=== PATIENT | female | born 1940 | race African-American/Black ===

== ENCOUNTER 2016-09-26 11:41 | Inpatient (IN) ==
[2016-09-26 13:18] LABS: BASO% 0.1 % (0.0-0.8); EOS# 0.01 X1000 (0.0-0.7); HEMATOCRIT 29.6 % (37.0-47.0); HEMOGLOBIN 10.2 g/dL (12.0-16.0); IMM GRAN# 0.46 X1000 (0.0-0.04); IMM GRAN% 1.8 % (0.0-0.5); MANUAL DIFF NEEDED? NO; MCH 25.6 PG (27-31); MCHC 34.5 g/dL (33-37); MCV 74.2 FL (81-99); MONO# 1.51 X1000 (0.11-0.59); MPV 10.4 FL (7.4-10.4); NEUT% 90.1 % (42.2-75.2); PLT 345 X1000 (130-400); RBC 3.99 XMIL (4.2-5.4)
[2016-09-26 13:23] LABS: ACETONE SERUM NEGATIVE (NEGATIVE)
[2016-09-26] MEDS ORDERED: NS 1,000 ML IV ONE (13:35)
[2016-09-26] MEDS ORDERED: HUMULIN R IV ONE (13:35)
[2016-09-26 13:49] LABS: AGAP 18; ALBUMIN 3.1 g/dL (3.5-5.0); ALKALINE PHOSPHATASE 68 U/L (32-104); BUN 65 mg/dL (8-22); CALCIUM 9.2 mg/dL (8.8-10.2); CHLORIDE 87 mmol/L (98-107); COSMO 295; GOT 18 U/L (10-30); GPT 13 U/L (10-36); POTASSIUM 3.7 mmol/L (3.5-5.1); SODIUM 128 mmol/L (136-145); TCO2 23 mmol/L (25-35); TOTAL BILIRUBIN 0.27 mg/dL (0.20-1.00); TOTAL PROTEIN 7.9 g/dL (6.3-8.3)
[2016-09-26 13:56] LABS: ALLEN TEST YES; BE 1.8 mmoll (-3.0-3.0); BLOOD TYPE ARTERIAL; DRAW SITE R RADIAL; METHB 2.3 % (0.0-1.5); O2(CT) 13.4 mL/dL (15.0-23.0); PCO2(98.6) 36 mmHg (35-45); PO2(98.6) 53 mmHg (60-100); SAMPLE BLOOD; SAO2 93.9 % (95.0-100.0); THB 10.6 g/dL (11.5-17.4); pH(98.6) 7.46 (7.35-7.45)
[2016-09-26 13:58] LABS: MODALITY ROOM AIR
--- NOTE | 2016-09-26 14:43 | Diag Imaging Result Document ---
PROCEDURE NAME: CHEST-2 VIEWS - 09/26/2016 CHEST X-RAY 2 VIEWS: COMPARISON: 09/25/2016. FINDINGS: There is worsening consolidation of the right upper lobe compatible with pneumonia. There is significant cardiomegaly. No pneumothorax or large effusion. IMPRESSION: 1. Worsening right upper lobe pneumonia. 2. Severe cardiomegaly.
[2016-09-26] MEDS ORDERED: ZITHROMAX 500 MG/NS 500 MG/250 ML IVPB IV ONE (15:00)
[2016-09-26] MEDS ORDERED: ROCEPHIN 1 GM/NS 1 GM/50 ML IVPB IV ONE (15:01)
--- NOTE | 2016-09-26 15:02 | PROVIDER DOCUMENTATION ---
This chart was entered by Faraz Capellan Scribe, acting as scribe for Kirill Mcgrath Jr, MD. HPI-General Adult - General Chief Complaint: High Blood Sugar Stated Complaint: HIGH BLOOD SUGAR Time Seen by Provider: 09/26/16 12:58 Source: patient, family Allergies/Adverse Reactions: Patient Allergies Allergy/AdvReac Type Severity Reaction Status Date / Time meperidine HCl * AdvReac hallucinati Verified 09/26/16 12:12 [From Demerol] ons Home Medications: Home Medication List Medication Instructions Recorded Confirmed Last Taken Type Amlodipine Besylate 5 mg PO DAILY 01/20/14 01/20/14 01/20/14 10:00 History Aspirin 81 mg PO DAILY 01/20/14 01/20/14 01/10/14 History Clopidogrel [Plavix] 75 mg PO DAILY 01/20/14 01/20/14 01/10/14 History Esomeprazole [Nexium] 40 mg PO DAILY 01/20/14 01/20/14 01/20/14 10:00 History Glimepiride 4 mg PO DAILY 01/20/14 01/20/14 01/20/14 10:00 History Insulin Glargine [Lantus] 0 unit SUBQ QAM 01/20/14 01/20/14 01/20/14 13:30 History Meclizine HCl [Antivert] 25 mg PO TID PRN #30 tablet 01/20/14 Unknown Rx Metoclopramide [Reglan] 10 mg PO Q6HR #40 tablet 01/20/14 Unknown Rx Pioglitazone HCl [Pioglitazone] 15 mg PO DAILY 01/20/14 01/20/14 01/20/14 10:00 History Pravastatin Sodium 80 mg PO DAILY 01/20/14 01/20/14 01/20/14 10:00 History Benzonatate [Tessalon Perle] 100 mg PO TID PRN #20 capsule 09/25/16 Unknown Rx Budesonide/Formoterol Fumarate 2 puff IH BID #1 inhaler 09/25/16 Unknown Rx [Symbicort 160-4.5 Mcg Inhaler] Levofloxacin [Levaquin] 750 mg PO DAILY #7 tablet 09/25/16 Unknown Rx - History of Present Illness -Gen Adult Nature of Presenting Problems: Patient is a 76 y/o F that presents to the ER with two complaints 1) high blood sugar, patient's blood sugar has been above 500mg/dl all weekend. She went to her PCP today and it was greater than 500, sent her here for evaluation 2) patient initially had cough and cold symptoms last week, given cough meds with codiene and she has been lethargic since. Seen two nights ago in the ER dx with pneumonia and given levaquin but hasn't got the rx filled, she still has cough and congestion. Location of Pain/Injury: reports: none Pain Radiation: reports: no radiation Quality of Pain: reports: none Severity: reports: moderate Onset/Duration: reports: gradual, 4 days ago Timing: reports: still present, getting worse Context/Activities at Onset: reports: none Modifying Factors: improves with: nothing Associated Symptoms: reports: cough, fatigue, malaise, shortness of breath, weakness. denies: chest pain, fever/chills, genitourinary problems, nausea Similar Symptoms Previously?: Yes Recently seen or treated by another doctor?: Yes - Diabetes Related Context Context: reports: high blood sugar, change in mental status Review of Systems - Adult - REVIEW OF SYSTEMS - ADULT Constitutional: denies: chills, fever Eyes: denies: double vision Ears, Nose, Mouth & Throat: denies: ear pain, sinus problem, throat pain, throat swelling Cardiovascular: denies: chest pain, palpitations Respiratory: reports: cough, shortness of breath. denies: wheezing Gastrointestinal: denies: abdominal pain, diarrhea, nausea, vomiting Genitourinary: reports: no symptoms reported Musculoskeletal: reports: no symptoms reported Integumentary: reports: no symptoms reported Neurological: reports: other (lethargy). denies: dizziness/vertigo, headache/ migraines Psychiatric: reports: no symptoms reported Endocrine: reports: no symptoms reported Hematologic/Lymphatic: reports: no symptoms reported Allergic/Immunologic: reports: no symptoms reported All Other Systems: Reviewed and Negative Past History - Adult - PAST MEDICAL HISTORY-ADULT Review of Records: reports: Old Records Reviewed, Nursing Assessment Review, Medications Reviewed Cardiovascular: reports: HTN, hyperlipidemia Gastrointestinal: reports: GERD Neurological: reports: CVA, stroke deficits (right sided) Endocrine/Immune: reports: Diabetes - PRIOR SURGERIES/PROCEDURES Surgical/Procedure History: reports: hysterectomy - PRIOR HOSPITALIZATIONS Prior Hospitalizations: reports: none - IMMUNIZATION STATUS Childhood Immunizations: See Nurse Assessment Flu Vaccine: See Nurse Assessment - FAMILY HISTORY Family History: reviewed, not pertinent - SOCIAL HISTORY Smoking: non-smoker Living Situation: family Physical Exam-General - PHYSICAL EXAM-ADULT Initial Vital Signs Reviewed: Yes - CONSTITUTIONAL General Appearance: no apparent distress, lethargic - EYES Eyes: PERRL/EOMI, pink conjunctivae - HEAD, EARS, NOSE, MOUTH & THROAT HENMT: normocephalic/atraumatic, moist mucous membranes, normal ENT inspection - NECK Neck: full range of motion, normal inspection - RESPIRATORY Respiratory: no respiratory distress, no accessory muscle use, decreased breath sounds - CARDIOVASCULAR Cardiovascular: regular rate, rhythm, no edema, no murmur - GASTROINTESTINAL (ABDOMEN) Abdominal Exam: normal bowel sounds, non tender, soft, no organomegaly - MUSCULOSKELETAL Extremity: normal range of motion, normal inspection, no pedal edema - SKIN Integumentary: normal color, warm/dry - NEUROLOGIC Neurologic: green inspector II-XII nml as tested, no motor/sensory deficits - PSYCHIATRIC Psych/Mental Status: normal mood/affect, oriented x 3 Progress - PLAN OF CARE/RESULTS Progress/Plan/Lab Results: Vital Signs - 8 hr 09/26/16 11:55 09/26/16 12:57 Temperature 99.0 F Pulse Rate 95 H 96 H Respiratory Rate 18 Blood Pressure 158/136 191/78 O2 Sat by Pulse Oximetry 97 92 L Laboratory Results - last 24 hr 09/26/16 09/26/16 09/26/16 12:50 12:50 13:45 WBC 25.09 H RBC 3.99 L Hgb 10.2 L Hct 29.6 L MCV 74.2 L MCH 25.6 L MCHC 34.5 RDW Std Deviation 14.9 H Plt Count 345 MPV 10.4 Immature Gran % (Auto) 1.8 H Neut % (Auto) 90.1 H Lymph % (Auto) 2.0 L Will % (Auto) 6.0 Eos % (Auto) 0.0 Baso % (Auto) 0.1 Immature Gran # (Auto) 0.46 H Neut # (Auto) 22.59 H Lymph # (Auto) 0.50 L Will # (Auto) 1.51 H Eos # (Auto) 0.01 Baso # (Auto) 0.02 Specimen Type ARTERIAL Sample Site R RADIAL pH 7.46 H pCO2 36 pO2 53 L HCO3 26.2 H Base Excess 1.8 Oxyhemoglobin 89.7 L* ABG O2 Sat (Calculated) 13.4 L ABG O2 Saturation 93.9 L ABG Carboxyhemoglobin 2.10 ABG Methemoglobin 2.3 H Oscar Test YES A-a O2 Difference 52.0 Total Hemoglobin 10.6 L Lactate 1.70 Blood Gas Modality ROOM AIR FiO2 % 21.0 Sodium 128 L Potassium 3.7 Chloride 87 L Carbon Dioxide 23 L Anion Gap 18 BUN 65 H Creatinine 3.0 H Estimated GFR/1.73 m2 18 BUN/Creatinine Ratio 22 Glucose 443 H* Calculated Osmolality 295 Calcium 9.2 Total Bilirubin 0.27 AST 18 ALT 13 Alkaline Phosphatase 68 Total Protein 7.9 Albumin 3.1 L Globulin 4.8 Albumin/Globulin Ratio 0.6 Acetone Level NEGATIVE Orders Category Date Time Status CHEST-2 VIEWS [RAD] Stat Exams 09/26/16 13:34 Ordered ABG [RESP] Routine Lab 09/26/16 13:45 Completed CBC WITH ELECTRONIC DIFF [HEME] Stat Lab 09/26/16 12:50 Completed COMPREHENSIVE METABOLIC PANEL [CHEM] Stat Lab 09/26/16 12:50 Completed Ketone [ACETONE SERUM] [CHEM] Stat Lab 09/26/16 12:50 Completed URINALYSIS W/POSS RFLX CULT-1 [URINALYSIS] Stat Lab 09/26/16 13:03 Uncollected 0.9% Sodium Chloride Inj [Ns] 1,000 ml Med 09/26/16 13:35 Active IV 999 mls/hr Insulin Human Regular [Humulin R] Med 09/26/16 13:35 Discontinued 15 unit IV NOW ONE Orders Category Date Time Status CHEST-2 VIEWS [RAD] Stat Exams 09/26/16 13:34 Draft ABG [RESP] Routine Lab 09/26/16 13:45 Completed CBC WITH ELECTRONIC DIFF [HEME] Stat Lab 09/26/16 12:50 Completed COMPREHENSIVE METABOLIC PANEL [CHEM] Stat Lab 09/26/16 12:50 Completed Ketone [ACETONE SERUM] [CHEM] Stat Lab 09/26/16 12:50 Completed URINALYSIS W/POSS RFLX CULT-1 [URINALYSIS] Stat Lab 09/26/16 13:03 Uncollected 0.9% Sodium Chloride Inj [Ns] 1,000 ml Med 09/26/16 13:35 Discontinued IV 999 mls/hr Insulin Human Regular [Humulin R] Med 09/26/16 13:35 Discontinued 15 unit IV NOW ONE Vital Signs Temp Pulse Resp BP Pulse Ox 09/26/16 12:57 96 H 191/78 92 L 09/26/16 11:55 99.0 F 95 H 18 158/136 97 meperidine HCl * [From Demerol] Adverse Reaction (Verified 09/26/16 12:12) hallucinations Amlodipine Besylate 5 mg PO DAILY 01/20/14 Aspirin 81 mg PO DAILY 01/20/14 Clopidogrel [Plavix] 75 mg PO DAILY 01/20/14 Esomeprazole [Nexium] 40 mg PO DAILY 01/20/14 Glimepiride 4 mg PO DAILY 01/20/14 Insulin Glargine [Lantus] 0 unit SUBQ QAM 01/20/14 Meclizine HCl [Antivert] 25 mg PO TID PRN #30 tablet 01/20/14 Metoclopramide [Reglan] 10 mg PO Q6HR #40 tablet 01/20/14 Pioglitazone HCl [Pioglitazone] 15 mg PO DAILY 01/20/14 Pravastatin Sodium 80 mg PO DAILY 01/20/14 Benzonatate [Tessalon Perle] 100 mg PO TID PRN #20 capsule 09/25/16 Budesonide/Formoterol Fumarate [Symbicort 160-4.5 Mcg Inhaler] 2 puff IH BID #1 inhaler 09/25/16 Levofloxacin [Levaquin] 750 mg PO DAILY #7 tablet 09/25/16 Laboratory 09/26/16 09/26/16 09/26/16 13:45 12:50 12:50 WBC 25.09 H RBC 3.99 L Hgb 10.2 L Hct 29.6 L MCV 74.2 L MCH 25.6 L MCHC 34.5 RDW Std Deviation 14.9 H Plt Count 345 MPV 10.4 Immature Gran % (Auto) 1.8 H Neut % (Auto) 90.1 H Lymph % (Auto) 2.0 L Will % (Auto) 6.0 Eos % (Auto) 0.0 Baso % (Auto) 0.1 Immature Gran # (Auto) 0.46 H Neut # (Auto) 22.59 H Lymph # (Auto) 0.50 L Will # (Auto) 1.51 H Eos # (Auto) 0.01 Baso # (Auto) 0.02 Specimen Type ARTERIAL Sample Site R RADIAL pH 7.46 H pCO2 36 pO2 53 L HCO3 26.2 H Base Excess 1.8 Oxyhemoglobin 89.7 L* ABG O2 Sat (Calculated) 13.4 L ABG O2 Saturation 93.9 L ABG Carboxyhemoglobin 2.10 ABG Methemoglobin 2.3 H Oscar Test YES A-a O2 Difference 52.0 Total Hemoglobin 10.6 L Lactate 1.70 Blood Gas Modality ROOM AIR FiO2 % 21.0 Sodium 128 L Potassium 3.7 Chloride 87 L Carbon Dioxide 23 L Anion Gap 18 BUN 65 H Creatinine 3.0 H Estimated GFR/1.73 m2 18 BUN/Creatinine Ratio 22 Glucose 443 H* Calculated Osmolality 295 Calcium 9.2 Total Bilirubin 0.27 AST 18 ALT 13 Alkaline Phosphatase 68 Total Protein 7.9 Albumin 3.1 L Globulin 4.8 Albumin/Globulin Ratio 0.6 Acetone Level NEGATIVE Result Diagrams: 09/26/16 12:50 09/26/16 12:50 - XRAY 1 XRAY Study: Chest Impression: Abnormal XRAY Interpretation: worsening pneumonia, CMG - CONSULTS/PCP/HOSPITALIST Notification #1 *Consult/PCP/Hospitalist*: Time Discussed: 14:58 Reason/Comments: pneumonia, hyperglycemia Consult Disposition: Admit Departure - Departure Time of Disposition Decision: 14:59 DIAGNOSIS: Hyperglycemia, Hyponatremia, Dehydration Right upper lobe pneumonia Qualifiers: Pneumonia type: due to unspecified organism Qualified Code(s): J18.1 - Lobar pneumonia, unspecified organism Chronic kidney disease (CKD) Qualifiers: Chronic kidney disease stage: unspecified stage Qualified Code(s): N18.9 - Chronic kidney disease, unspecified Disposition: ADMITTED INPATIENT 09 Certified Medical Emergency: Emergent Condition: Stable Referrals and Follow-Ups: Wayne Delatorre MD [Primary Care Provider] - - Critical Care Note This patient required my direct & personal management of CC.: No This chart was documented by the indicated scribe, (Faraz Caplelan, Scribe) and accurately reflects the services I performed and decisions made by me, Kirill Mcgrath Jr, MD, as attested by the provider's signature.
[2016-09-26 15:44] LABS: URINE CULTURE NEEDED? NO; URINE SOURCE CATH
[2016-09-26 15:48] LABS: URINE MICRO REVIEW NEEDED? YES
[2016-09-26 15:49] LABS: BILIRUBIN URINE NEGATIVE (NEGATIVE); BLOOD URINE SMALL (NEGATIVE); COLOR YELLOW; GLUCOSE URINE >1000 mg/dL (NEGATIVE); LEUKOCYTES URINE NEGATIVE (NEGATIVE); NITRITE URINE NEGATIVE (NEGATIVE); PROTEIN URINE 50 mg/dL (NEGATIVE); SP GRAVITY URINE 1.011; TURBIDITY URINE CLEAR (CLEAR); UROBILINOGEN URINE NORMAL (NORMAL)
[2016-09-26 15:52] LABS: UR EPITHELIAL CELLS <10 /HPF (<10); URINE BACTERIA NEGATIVE /HPF; URINE RBC <10 /HPF (<10); URINE WBC <10 /HPF (<10)
[2016-09-26 15:57] LABS: HEMOGLOBIN A1C 9.4 % (4.8-6.0)
[2016-09-26 16:07] LABS: URINE CASTS GRANULAR PRESENT
[2016-09-26 16:32] LABS: UR CREAT RANDOM 64.2 mg/dL (11-20)
[2016-09-26] MEDS ORDERED: APRESOLINE IV PRN (17:24)
--- NOTE | 2016-09-26 19:48 | Diag Imaging Result Document ---
PROCEDURE NAME: HEAD W/O CONTRAST - 09/26/2016 CT OF THE HEAD WITHOUT CONTRAST: FINDINGS: There is encephalomalacia in both cerebellar hemispheres. This was also present on 02/13/2014. The MRI of that date also demonstrates a lacunar lesion in the right brachium pontis. There is no evidence of bleed or abnormal extra-axial fluid collection. The visualized paranasal sinuses are clear. The calvarium appears to be intact. IMPRESSION: Chronic ischemic changes. No evidence of acute disease.
[2016-09-26] MEDS ORDERED: NS 1,000 ML IV SCH (20:01)
[2016-09-26] MEDS: XOPENEX NEB INH SCH ×2 (20:30→22:30)
[2016-09-26] MEDS: ATROVENT NEB INH SCH ×2 (20:30→22:30)
--- NOTE | 2016-09-26 20:59 | HISTORY AND PHYSICAL ---
PRIMARY CARE PROVIDER: Dr. Wayne Delatorre. CHIEF COMPLAINT: Elevated blood sugar, cough, weakness, chills. HISTORY OF PRESENT ILLNESS: Ms Nidia Witt is a 76-year-old female with a history of CVA and right-sided weakness, diabetes mellitus type 2, CKD, hypertension, reflux, high cholesterol, anemia who apparently over the last 2 weeks has had a cough that is nonproductive. She went to her primary care provider about 3 days ago and was sent home with antibiotics which the daughter who lives with her is unsure she took. She presented to the ER late Monday night which is around 2 days ago and was diagnosed with right middle lobe pneumonia. She was sent home with Levaquin, Symbicort, Tessalon Perles. She had not had her Levaquin filled yet and she continued with chills, lethargy and the patient's daughter states that she was just been more lethargic since she was taken a cough medicine that had codeine in it which was prescribed by her primary care provider. The patient is drowsy. She is able to tell me her name and where she is at. She did follow commands. Her blood glucose is quite elevated in the 400 range. She presented to her primary care provider once more today who then once was unable to obtain a blood glucose on her sent her here. A repeat chest x-ray today showed right upper lobe pneumonia, severe cardiomegaly. She does have a small low-grade fever of 99.0 and a white count of 25. Her lactate is normal at this moment of 1.7. Will admit her for further evaluation. PAST MEDICAL HISTORY: Diabetes mellitus type 2 uncontrolled, CKD stage 3, hypertension, GERD, hyperlipidemia, CVA with right-sided residual, anemia. SURGICAL HISTORY: Hysterectomy, right femoral-popliteal. SOCIAL HISTORY: Denies tobacco, alcohol or illicit drug use. Her daughter lives at home with her. Normally she is ambulatory but over the last week has used a cane for ambulation. FAMILY HISTORY: Positive for diabetes and hypertension. REVIEW OF SYSTEMS: Were complete and all were negative except for those mentioned above HPI. It was difficult to obtain review of systems from her as she was somewhat lethargic. ALLERGIES: Demerol. HOME MEDICATIONS: Have not been verified. LABORATORY DATA: White blood cells 25,000 hemoglobin 10, hematocrit 29, platelet count 345,000. ABGs, pH 7.46, pCO2 36, PO2 53, bicarb 26, base excess 1.8, saturation 89.7%, lactate was 1.7. Sodium 128, potassium 3.7, BUN 65, creatinine 3.0, glucose 443, serum osmolality 313, calcium 9.2, bilirubin 0.27, AST 18, ALT 13, albumin 3.1. Urinalysis 50 protein, greater than 1000 glucose, negative for ketones, small amount of blood. Negative nitrite. Urine sodium pending. Urine creatinine pending. Acetone negative. IMAGING: Chest x-ray, right middle and upper lobe pneumonia, severe cardiomegaly. PHYSICAL EXAMINATION: VITAL SIGNS: Temperature is 99.0 degrees, heart rate 96, respiratory 18, blood pressure 166/66, saturation 96% on 2 L nasal cannula. She is 5 feet 6 inches tall, 211 pounds, BMI 34.1. GENERAL: Ms. Nidia Witt is a 76-year-old female. She is in no acute distress very lethargic but arouses easily and answers questions with some confusion. HEENT: Atraumatic, normocephalic. Pupils are equal, round, reactive to light. Extraocular movements are intact. NECK: No JVD or carotid bruits noted. CARDIOVASCULAR: S1, S2. Regular rate and rhythm. No rubs, gallops, murmurs. PULMONARY: Rhonchi on the right upper to middle lobes decreased in the bases. No accessory muscle use or work of breathing noted. Currently on 2 L nasal cannula. GI: Soft, nontender, nondistended. Positive bowel sounds x4. EXTREMITIES: No edema noted. Trace weakness in the right upper extremity with handgrip about a 4/5. NEURO: Oriented to name and place. Disoriented to year. Was drowsy but awoke and follow commands easily. SKIN: Warm, dry, intact. ASSESSMENT AND PLAN: 1. Community-acquired pneumonia versus aspiration pneumonia of the right upper middle lobe. She will be on azithromycin and Rocephin, pulmonary toilet, nebulizers q.6 hours. Will do a swallow evaluation to further evaluate if there is aspiration occurring. 2. Sepsis secondary to pneumonia again with antibiotics which will be continued. Blood cultures obtained. Urinalysis negative and mild IV fluid hydration. 3. Questionable acute kidney injury, chronic kidney disease, waiting for urine sodium and urine creatinine. Creatinine 3.0 which is up from 1.5 in 2014. Again mild IV fluid hydration. 4. Cardiomegaly on the chest x-ray. Will perform echocardiogram. 5. Hyponatremia. IV fluid hydration. 6. Type 2 with nonketotic hyperosmolar hyperglycemia. Will do a sliding scale insulin. Pattern blood glucoses. Check a hemoglobin A1c and confirm patient's home insulin regimen. 7. History of cerebrovascular accident with right-sided weakness. 8. Gastroesophageal reflux disease. Continue proton pump inhibitor. 9. Hypertension. Will continue home medications once verified. 10. Deep venous thrombosis prophylaxis heparin, will resume Plavix once verified. 11. History of right femoral block bypass, likely will need Plavix resumed. 12. Generalized weakness right greater than left secondary to old cerebrovascular accident. Will order physical therapy. Apparently she has been having to use a cane in the last week. Dictated by PATRIA Dasilva for Mart Mckinney MD cc: MD Mart Ruiz MD
[2016-09-26] MEDS: HUMULIN R SUBQ SCH ×2 (21:10→21:36)
[2016-09-26] MEDS: HEPARIN SUBQ SCH (21:11)
[2016-09-26] MEDS: MUCOMYST 20% INH SCH (22:30)
[2016-09-26] MEDS: PULMICORT INH SCH (22:30)
[2016-09-27] MEDS: ATROVENT NEB INH SCH ×4 (03:53→22:35)
[2016-09-27] MEDS: XOPENEX NEB INH SCH ×4 (03:54→22:35)
[2016-09-27] MEDS: TYLENOL PO PRN (04:12)
[2016-09-27] MEDS: HUMULIN R SUBQ SCH ×4 (05:59→21:04)
[2016-09-27] MEDS: PRILOSEC PO SCH (06:00)
[2016-09-27 06:38] LABS: BASO% 0.2 % (0.0-0.8); EOS# 0.01 X1000 (0.0-0.7); HEMATOCRIT 27.7 % (37.0-47.0); HEMOGLOBIN 9.5 g/dL (12.0-16.0); IMM GRAN# 0.45 X1000 (0.0-0.04); IMM GRAN% 2.2 % (0.0-0.5); LYMPH# 0.78 X1000 (1.2-3.4); LYMPH% 3.8 % (20.5-51.1); MANUAL DIFF NEEDED? YES; MCH 25.4 PG (27-31); MCHC 34.3 g/dL (33-37); MCV 74.1 FL (81-99); MONO# 1.47 X1000 (0.11-0.59); MONO% 7.2 % (1.7-9.3); MPV 9.7 FL (7.4-10.4); NEUT% 86.6 % (42.2-75.2); PLT 323 X1000 (130-400); RBC 3.74 XMIL (4.2-5.4)
[2016-09-27 07:02] LABS: BANDS 2 % (0-1); LYMPHS 4 % (21-51); MONO 4 % (1-9)
[2016-09-27 07:10] LABS: ALBUMIN 2.7 g/dL (3.5-5.0); CALCIUM 8.5 mg/dL (8.8-10.2); POTASSIUM 3.6 mmol/L (3.5-5.1); TOTAL BILIRUBIN 0.3 mg/dL (0.20-1.00); TOTAL PROTEIN 7.2 g/dL (6.3-8.3)
[2016-09-27] MEDS: PULMICORT INH SCH (09:14)
[2016-09-27] MEDS: MUCOMYST 20% INH SCH ×2 (09:15→22:35)
[2016-09-27] MEDS: HEPARIN SUBQ SCH ×2 (09:38→21:03)
[2016-09-27] MEDS: ASPIRIN PO SCH (09:38)
--- NOTE | 2016-09-27 15:08 | PROGRESS NOTE ---
DATE: 09/27/2016 SUBJECTIVE: Patient reports breathing better. Denies any fever or chills. Still has mild cough. OBJECTIVE: Vital Signs: Temperature 98.9 degrees, heart rate 107, respiratory rate 16, blood pressure 166/71, O2 saturation 94% on room air. General examination: This is a 76-year-old, female, lying in bed in no acute distress. HEENT: Head is normocephalic, atraumatic. Anicteric sclerae and pale conjunctivae. Mucous membranes moist. Neck: Supple. No JVD noted. No carotid bruits. No lymphadenopathy. No thyromegaly. Cardiovascular Exam: S1, S2 heard. No murmurs, gallops, or rubs. Regular rate and rhythm. Respiratory Exam: There is some rhonchi in both bases. Patient is not using any accessory muscles or having work of breathing. Abdomen: Soft. Nontender to palpation. Bowel sounds present. No organomegaly. Extremities: No clubbing, cyanosis, or edema. Peripheral pulses present in both legs. Neurological exam: Patient alert and oriented x3. Able to move 4 extremities. Cranial nerves 2-12 grossly normal. The patient is oriented to month and place. He is oriented in year. Patient is definitely more awake today. Follows commands. Moves 4 extremities. LABORATORY DATA: White cell count 20.45, hemoglobin 9.5, hematocrit 27.7, platelets 323. BMP is remarkable for creatinine 2.6, BUN 15.8 and glucose 179. Hemoglobin A1c 9.4. ASSESSMENT AND PLAN: 1. Community-acquired pneumonia. Patient is on Rocephin and azithromycin and nebulizations every 6 hours. The patient is doing definitely much better. More alert and awake, and she is not using any oxygen supplementation. We will continue with the same management. 2. Sepsis secondary to pneumonia. Patient's blood pressure is fine, although she spiked fever once this morning. Blood cultures have been obtained, but are still pending. Stenosis is negative. We will continue with intravenous fluids. 3. Acute kidney injury. Creatinine was 1.5 on 09/26/2016 and today is 3.0. It is improving from yesterday, which was 3.0, and today is 2.6. We will continue with checking basic metabolic panel daily. 4. History of cerebrovascular accident with right-sided weakness. Aware. 5. Type 2 nonketotic hyperosmolar hyperglycemia. The condition has resolved. Blood sugars are at 160. 6. Hypertension. Home medication has been restarted and blood pressure definitely will be controlled easily. 7. History of right femoral block bypass. Aware. 8. Generalized weakness. We will consult physical therapy. cc: Nico Rojo MD
[2016-09-27] MEDS: NORVASC PO SCH (16:15)
[2016-09-27] MEDS: ROCEPHIN 1 GM/NS 1 GM/50 ML IVPB IV SCH (16:15)
[2016-09-27] MEDS: ZITHROMAX 500 MG/NS 500 MG/250 ML IVPB IV SCH (16:18)
--- NOTE | 2016-09-27 16:41 | ECHO REPORT ---
ORDER DATE: 09/27/2016 INDICATIONS: Shortness of breath, cough, sepsis. FINDINGS: 1. The right atrium appears normal in size. 2. There is trace tricuspid regurgitation. RV systolic pressure of 41. 3. Right ventricle appears mildly enlarged with normal RV systolic function. 4. No significant pulmonic insufficiency. 5. Mild left atrial enlargement at 4.5 cm. 6. No mitral prolapse. Trace mitral regurgitation. 7. Normal LV size, end-diastolic dimension of 5.4. Normal wall thicknesses with no evidence of left ventricular hypertrophy. Normal LV systolic function. Estimated EF of 60% with normal wall motion. 8. Aortic valve opens well. It is trileaflet. No evidence of stenosis or insufficiency. 9. Aorta appears normal in visualized segments. 10. No pericardial effusion is seen. cc: MD Leora Boucher CRNP
[2016-09-27] MEDS: REGLAN PO SCH (21:03)
[2016-09-27] MEDS: SYMBICORT 160/4.5 MICROGM INHALER INH SCH (22:35)
[2016-09-28] MEDS: REGLAN PO SCH ×4 (02:31→22:07)
[2016-09-28] MEDS: ATROVENT NEB INH SCH ×4 (03:24→20:00)
[2016-09-28] MEDS: XOPENEX NEB INH SCH ×4 (03:24→20:00)
[2016-09-28] MEDS: HUMULIN R SUBQ SCH ×4 (06:03→22:10)
[2016-09-28] MEDS: PRILOSEC PO SCH (06:03)
[2016-09-28 06:14] LABS: BASO% 0.2 % (0.0-0.8); EOS# 0.05 X1000 (0.0-0.7); EOS% 0.3 % (0.0-10.0); HEMATOCRIT 27.3 % (37.0-47.0); HEMOGLOBIN 9.2 g/dL (12.0-16.0); IMM GRAN# 0.48 X1000 (0.0-0.04); IMM GRAN% 2.5 % (0.0-0.5); LYMPH# 0.93 X1000 (1.2-3.4); LYMPH% 4.9 % (20.5-51.1); MANUAL DIFF NEEDED? YES; MCH 25.1 PG (27-31); MCHC 33.7 g/dL (33-37); MCV 74.6 FL (81-99); MONO% 6.9 % (1.7-9.3); MPV 10.1 FL (7.4-10.4); NEUT% 85.2 % (42.2-75.2); PLT 329 X1000 (130-400); RBC 3.66 XMIL (4.2-5.4)
[2016-09-28 06:31] LABS: ALBUMIN 2.3 g/dL (3.5-5.0); CALCIUM 8.1 mg/dL (8.8-10.2); POTASSIUM 3.7 mmol/L (3.5-5.1); TOTAL BILIRUBIN 0.3 mg/dL (0.20-1.00); TOTAL PROTEIN 5.6 g/dL (6.3-8.3)
[2016-09-28 06:41] LABS: BANDS 8 % (0-1); LYMPHS 4 % (21-51); MONO 6 % (1-9)
[2016-09-28 06:42] LABS: HYPOCHROM 2+
[2016-09-28] MEDS: PLAVIX PO SCH (08:46)
[2016-09-28] MEDS: PRAVACHOL PO SCH (08:47)
[2016-09-28] MEDS: NORVASC PO SCH (08:47)
[2016-09-28] MEDS: ASPIRIN PO SCH (08:47)
[2016-09-28] MEDS: HEPARIN SUBQ SCH ×2 (08:47→22:07)
[2016-09-28] MEDS: MUCOMYST 20% INH SCH ×2 (09:27→20:00)
[2016-09-28] MEDS: SYMBICORT 160/4.5 MICROGM INHALER INH SCH ×2 (09:28→20:00)
[2016-09-28] MEDS: ROCEPHIN 1 GM/NS 1 GM/50 ML IVPB IV SCH (14:36)
--- NOTE | 2016-09-28 14:50 | PROGRESS NOTE ---
DATE: 09/28/2016 SUBJECTIVE: Ms. Nidia Witt is a 76-year-old, female, currently sitting on the side of the bed eating, stating she feels much better and is hoping to go home soon. She has continued despite the occasional fevers, although her white count has dropped. We will need to monitor at least 1 more day. OBJECTIVE: Vital Signs: Temperature 100 degrees, heart rate 104, respiratory rate 20, blood pressure 154/63, O2 saturation 97% on room air. General: Ms. Witt is a 76-year-old, female in no acute distress, able to answer all questions appropriately. Cardiovascular: S1, S2. Tachycardic rate and rhythm. No rubs, gallops, or murmurs. Pulmonary: Clear to auscultation. Bilateral breath sounds. No accessory muscle use or work of breathing noted. GI: Soft, nontender, nondistended. Positive bowel sounds x4. Extremities: No edema noted. +2 dorsalis and radial pulses. Neurologic: Alert and oriented x4. Moves all extremities equally. LABORATORY DATA: White blood cells 18,000, hemoglobin 9, hematocrit 27, platelet count 329. Sodium 140, potassium 3.7, BUN 47, creatinine 2.5, glucose 86, calcium 8.1, albumin 2.3. IMAGING: Echocardiogram: RV systolic pressure is 41, normal RV systolic function. Left ventricular ejection fraction 60%. ASSESSMENT/PLAN: 1. Community-acquired pneumonia. Aspiration was ruled out. She is able to swallow without difficulty. She passed her swallow evaluation by speech therapy. Continue Rocephin, azithromycin nebulizers every 6 hours. Not using oxygen supplementation anymore, but continues to spike fevers. White count is declining. 2. Sepsis secondary to pneumonia, more stable, but again continues to have fevers. Blood cultures negative to date. 3. Acute kidney injury on chronic kidney disease with slight improvement. The FENa was consistent with acute tubular necrosis. So, will take time to improve. Continue with hydration. 4. Type 2 diabetes with admission consistent with nonketotic hyperosmolar hyperglycemia. This condition has resolved and assured blood glucoses have remained stable. 5. Hypertension. Home medications have resumed. 6. History of right femoral bypass, stable. 7. Generalized weakness, improved. Continue with physical therapy. Dictated by PATRIA Dasilva for Nico Rojo MD cc: PATRIA Dasilva MD
[2016-09-28] MEDS: ZITHROMAX 500 MG/NS 500 MG/250 ML IVPB IV SCH (16:02)
[2016-09-28] MEDS: LEVAQUIN 750 MG/D5W 750 MG/150 ML IVPB IV SCH (17:45)
[2016-09-28] MEDS: TYLENOL PO PRN (22:06)
[2016-09-29] MEDS: REGLAN PO SCH ×4 (02:27→20:12)
[2016-09-29] MEDS: ATROVENT NEB INH SCH ×4 (04:21→20:01)
[2016-09-29] MEDS: XOPENEX NEB INH SCH ×4 (04:21→20:01)
[2016-09-29] MEDS: PRILOSEC PO SCH (06:58)
[2016-09-29] MEDS: HUMULIN R SUBQ SCH ×4 (06:58→20:48)
[2016-09-29 07:06] LABS: BASO% 0.3 % (0.0-0.8); EOS% 0.6 % (0.0-10.0); HEMATOCRIT 26.3 % (37.0-47.0); HEMOGLOBIN 8.8 g/dL (12.0-16.0); IMM GRAN# 0.62 X1000 (0.0-0.04); IMM GRAN% 3.5 % (0.0-0.5); LYMPH# 0.88 X1000 (1.2-3.4); LYMPH% 4.9 % (20.5-51.1); MANUAL DIFF NEEDED? YES; MCH 25.2 PG (27-31); MCHC 33.5 g/dL (33-37); MCV 75.4 FL (81-99); MONO# 1.31 X1000 (0.11-0.59); MONO% 7.3 % (1.7-9.3); MPV 9.9 FL (7.4-10.4); NEUT% 83.4 % (42.2-75.2); PLT 322 X1000 (130-400); RBC 3.49 XMIL (4.2-5.4)
[2016-09-29 07:27] LABS: ALBUMIN 2.6 g/dL (3.5-5.0); CALCIUM 8.6 mg/dL (8.8-10.2); POTASSIUM 3.7 mmol/L (3.5-5.1); TOTAL BILIRUBIN 0.27 mg/dL (0.20-1.00); TOTAL PROTEIN 7.1 g/dL (6.3-8.3)
[2016-09-29 07:53] LABS: LYMPHS 4 % (21-51); MONO 4 % (1-9)
[2016-09-29] MEDS: PLAVIX PO SCH (08:44)
[2016-09-29] MEDS: HEPARIN SUBQ SCH ×2 (08:44→20:12)
[2016-09-29] MEDS: PRAVACHOL PO SCH (08:44)
[2016-09-29] MEDS: ASPIRIN PO SCH (08:44)
[2016-09-29] MEDS: NORVASC PO SCH (08:44)
[2016-09-29] MEDS ORDERED: VANCOMYCIN IV PER PHARMACY MISC SCH (09:45)
[2016-09-29] MEDS: SYMBICORT 160/4.5 MICROGM INHALER INH SCH ×2 (09:56→20:01)
[2016-09-29] MEDS: MUCOMYST 20% INH SCH ×2 (09:56→20:00)
[2016-09-29] MEDS: ZOSYN 3.375 GM/NS 3.375 GM/50 ML IVPB IV SCH ×3 (11:21→20:51)
[2016-09-29] MEDS ORDERED: BLISTEX MEDICATED BERRY LIP BALM TOP PRN (12:24)
--- NOTE | 2016-09-29 12:54 | Diag Imaging Result Document ---
PROCEDURE NAME: CT THORAX W/O CONTRAST - 09/29/2016 CT OF THE CHEST WITHOUT CONTRAST: FINDINGS: There is consolidation in a patchy fashion throughout the right upper lobe. This extends from the apex to the minor fissure. There is some atelectasis and small pleural effusion at the right base. Some small tree-in-bud type opacities are seen medially in the right lower lobe. There is subsegmental atelectasis in the left lower lobe. There is extensive arterial calcification present, particularly the left anterior descending and circumflex coronary arteries. There are calcified nodes in the right hilum and some noncalcified adenopathy may also be present. No definite endobronchial obstruction is demonstrated. There is a 15 mm precarinal node. IMPRESSION: Right upper lobe pneumonia. Atherosclerosis. Right pleural effusion.
[2016-09-29] MEDS ORDERED: VANCOMYCIN 1,500 MG in NS 250 ML IV SCH (13:00)
--- NOTE | 2016-09-29 15:49 | PROGRESS NOTE ---
DATE: 09/29/2016 SUBJECTIVE: Patient reports feeling better. 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 Denies any fever or chills. OBJECTIVE: Vital Signs: Temperature 98.0, heart rate 93, respiratory rate 17, blood pressure 153/55, O2 saturation 98% on 2 L nasal cannula. General Examination: This is a 76-year-old, female lying in bed, in no acute distress. HEENT: Head is normocephalic, atraumatic. Anicteric sclerae and pale conjunctivae. Mucous membranes moist. Neck: Supple. No JVD noted. No carotid bruits. No lymphadenopathy. No thyromegaly. Cardiovascular: S1, S2 heard. No murmurs, gallops, or rubs. Regular rate and rhythm. Respiratory: Clear bilaterally to auscultation. No work of breathing or using accessory muscles. Abdomen: Soft, nontender to palpation. Bowel sounds present. No organomegaly. Extremities: No clubbing, cyanosis, or edema. Peripheral pulses present in both legs. Neurological: Patient alert oriented x3. Able to move 4 extremities. Cranial nerves 2-12 grossly normal. LABORATORY DATA: White cell count 17.86, hemoglobin 8.8, hematocrit 26.3, platelets 322. BMP shows creatinine 2.4, BUN 43. ASSESSMENT AND PLAN: 1. Community-acquired pneumonia, although patient is clinically better. The white cell count is getting higher. I guess at this time, we are going to switch antibiotics to a broad-spectrum vancomycin and Zosyn. We will continue with nebulizations and oxygen supplementation, although she is requiring just 2 L of oxygen by nasal cannula. 2. Sepsis secondary to pneumonia, stable. Still spiking fever. We will continue with same management. 3. Acute kidney injury. Creatinine is around baseline. We will continue with the same management. 4. Diabetes type 2. The glucose is stable and patient is on sliding scale insulin. 5. Hypertension. Home medication has been received and blood pressure is better controlled. 6. History of right femoral bypass. That condition is stable. 7. Generalized weakness, stable. cc: Nico Rojo MD
[2016-09-29] MEDS: LEVAQUIN 750 MG/D5W 750 MG/150 ML IVPB IV SCH (16:21)
[2016-09-30] MEDS: REGLAN PO SCH ×4 (02:19→19:57)
[2016-09-30] MEDS: ZOSYN 3.375 GM/NS 3.375 GM/50 ML IVPB IV SCH ×4 (03:30→21:33)
[2016-09-30] MEDS: XOPENEX NEB INH SCH ×4 (04:04→20:25)
[2016-09-30] MEDS: ATROVENT NEB INH SCH ×4 (04:04→20:25)
[2016-09-30] MEDS: HUMULIN R SUBQ SCH ×4 (06:06→21:33)
[2016-09-30] MEDS: PRILOSEC PO SCH (06:06)
[2016-09-30 07:23] LABS: MANUAL DIFF NEEDED? NO
[2016-09-30 07:28] LABS: BASO% 0.2 % (0.0-0.8); EOS% 0.7 % (0.0-10.0); HEMATOCRIT 25.7 % (37.0-47.0); HEMOGLOBIN 8.6 g/dL (12.0-16.0); IMM GRAN# 0.56 X1000 (0.0-0.04); IMM GRAN% 4.1 % (0.0-0.5); LYMPH# 0.74 X1000 (1.2-3.4); LYMPH% 5.4 % (20.5-51.1); MCH 25.2 PG (27-31); MCHC 33.5 g/dL (33-37); MCV 75.4 FL (81-99); MONO# 0.87 X1000 (0.11-0.59); MONO% 6.4 % (1.7-9.3); MPV 10.1 FL (7.4-10.4); NEUT% 83.2 % (42.2-75.2); PLT 361 X1000 (130-400); RBC 3.41 XMIL (4.2-5.4)
[2016-09-30 07:53] LABS: ALBUMIN 2.6 g/dL (3.5-5.0); CALCIUM 8.5 mg/dL (8.8-10.2); POTASSIUM 3.8 mmol/L (3.5-5.1); TOTAL BILIRUBIN 0.29 mg/dL (0.20-1.00); TOTAL PROTEIN 6.7 g/dL (6.3-8.3)
[2016-09-30] MEDS: ASPIRIN PO SCH (08:39)
[2016-09-30] MEDS: PRAVACHOL PO SCH (08:39)
[2016-09-30] MEDS: PLAVIX PO SCH (08:40)
[2016-09-30] MEDS: HEPARIN SUBQ SCH ×2 (08:40→20:01)
[2016-09-30] MEDS: NORVASC PO SCH ×2 (08:40→20:01)
[2016-09-30] MEDS: SYMBICORT 160/4.5 MICROGM INHALER INH SCH ×2 (10:00→20:25)
[2016-09-30] MEDS: MUCOMYST 20% INH SCH ×2 (10:00→20:25)
[2016-09-30] MEDS: LEVAQUIN 750 MG/D5W 750 MG/150 ML IVPB IV SCH (15:22)
--- NOTE | 2016-09-30 16:29 | PROGRESS NOTE ---
DATE: 09/30/2016 SUBJECTIVE: Patient reports feeling better, reports being able to walk to the bathroom and not getting short of breath. OBJECTIVE: Vital Signs: Temperature 98.7 degrees, heart rate 85, respiratory rate 19, blood pressure 149/67, O2 saturation 99% on 2L nasal cannula. General Examination: This is a 76-year- old female, lying in bed in no acute distress. HEENT: Head is normocephalic, atraumatic. Anicteric sclerae and pale conjunctivae. Mucous membranes moist. Neck: Supple. No JVD noted. No carotid bruits. No lymphadenopathy. No thyromegaly. Cardiovascular: S1 and S2 heard. No murmurs, gallops, or rubs. Regular rate and rhythm. Respiratory: Clear bilaterally to auscultation. No work of breathing or using accessory muscles. Abdomen: Soft, nontender to palpation. Bowel sounds present. No organomegaly. Extremities: No clubbing, cyanosis, or edema. Peripheral pulses present in both legs. Neurological: Patient is alert and oriented x3. Able to move 4 extremities. Cranial nerves 2-12 grossly normal. LABORATORY DATA: Reviewed. ASSESSMENT AND PLAN: 1. Community-acquired pneumonia. The patient clinically continues to improve, and also the white cell count has dropped to 13.7 today. We are going to continue with the same medication, in this case, vancomycin and Zosyn. We are going to continue also with oxygen supplementation. 2. Sepsis secondary to pneumonia, stable. That condition has resolved. We will continue with the same antibiotic therapy. 3. Acute kidney injury. Creatinine around baseline. 4. Diabetes mellitus, type 2. Blood sugar has been stable so far. We will continue with sliding scale insulin. 5. Hypertension. The blood pressure is between 149 and 150. Currently, this patient is receiving amlodipine 5 mg p.o. b.i.d., which we are going to increase to 5 mg p.o. b.i.d. 6. History of right femoral bypass, stable. 7. Generalized weakness, stable. cc: Nico Rojo MD
[2016-10-01] MEDS: REGLAN PO SCH ×2 (03:08→10:34)
[2016-10-01] MEDS: ZOSYN 3.375 GM/NS 3.375 GM/50 ML IVPB IV SCH ×2 (03:08→10:33)
[2016-10-01] MEDS: XOPENEX NEB INH SCH ×2 (04:09→09:53)
[2016-10-01] MEDS: ATROVENT NEB INH SCH ×2 (04:09→09:54)
[2016-10-01 09:09] LABS: BASO% 0.2 % (0.0-0.8); EOS# 0.14 X1000 (0.0-0.7); EOS% 1.3 % (0.0-10.0); HEMATOCRIT 24.5 % (37.0-47.0); HEMOGLOBIN 8.2 g/dL (12.0-16.0); IMM GRAN# 0.47 X1000 (0.0-0.04); IMM GRAN% 4.2 % (0.0-0.5); LYMPH# 0.71 X1000 (1.2-3.4); LYMPH% 6.4 % (20.5-51.1); MANUAL DIFF NEEDED? YES; MCH 25.5 PG (27-31); MCHC 33.5 g/dL (33-37); MCV 76.1 FL (81-99); MONO# 0.83 X1000 (0.11-0.59); MONO% 7.4 % (1.7-9.3); MPV 9.9 FL (7.4-10.4); NEUT% 80.5 % (42.2-75.2); PLT 363 X1000 (130-400); RBC 3.22 XMIL (4.2-5.4)
[2016-10-01 09:13] LABS: CALCIUM 8.6 mg/dL (8.8-10.2); POTASSIUM 4.3 mmol/L (3.5-5.1)
[2016-10-01 09:52] VITALS: BP 151/83
[2016-10-01] MEDS: MUCOMYST 20% INH SCH (09:54)
[2016-10-01] MEDS: SYMBICORT 160/4.5 MICROGM INHALER INH SCH (09:54)
[2016-10-01] MEDS: HUMULIN R SUBQ SCH ×2 (10:33→12:11)
[2016-10-01] MEDS: HEPARIN SUBQ SCH (10:34)
[2016-10-01] MEDS: PRAVACHOL PO SCH (10:34)
[2016-10-01] MEDS: ASPIRIN PO SCH (10:34)
[2016-10-01] MEDS: NORVASC PO SCH (10:34)
[2016-10-01] MEDS: PLAVIX PO SCH (10:34)
[2016-10-01 11:23] LABS: BANDS 2 % (0-1); LYMPHS 4 % (21-51); MONO 2 % (1-9)
[2016-10-01 11:24] LABS: HYPOCHROM 1+
--- NOTE | 2016-10-02 06:49 | DISCHARGE SUMMARY ---
ADMISSION DATE: 09/26/2016 DISCHARGE DATE: 10/01/2016 DISCHARGE DIAGNOSES: 1. Community-acquired pneumonia in the right upper lobe. 2. Sepsis secondary to pneumonia. 3. Acute on chronic kidney disease. 4. Hyponatremia, resolved. 5. Diabetes mellitus type 2. 6. History of cerebrovascular accident. 7. Gastroesophageal reflux disease. 8. Hypertension. PROCEDURES: 1. Head CT showed chronic ischemic changes but no evidence of acute disease. 2. Chest CT showed right upper lobe pneumonia and right pleural effusion. 3. Echocardiogram showed no pericardial effusion, ejection fraction of 60% with normal wall motion, and mild left atrial enlargement. CONSULTATIONS: None. HOSPITAL COURSE: This is a 76-year-old, female with a history of CVA and right- sided weakness, diabetes mellitus type 2, CKD, and hypertension who presented to the emergency department with a 2 week history of cough that was getting worse, nonproductive. She went to see her primary care physician. She was treated with antibiotic that they do not remember. Patient evaluated in the ER. She was admitted to the hospital for further evaluation and treatment. She was started on broad-spectrum antibiotic with vancomycin and Zosyn. White cell count which initially was elevated at 5010 started coming down to normal limits so today she is being discharged in stable condition using almost no oxygen, able to walk around. DISCHARGE PHYSICAL EXAMINATION: Vital Signs: Temperature 98 degrees, heart rate 84, respiratory rate 18, blood pressure 151/83, O2 saturation 100% on 1 L nasal cannula. General Examination: This is a 76-year-old, female lying in bed, in no acute distress. HEENT: Head is normocephalic and atraumatic. Anicteric sclerae and pale conjunctivae. Mucous membranes moist. Neck: Supple. No JVD noted. No carotid bruits. No lymphadenopathy. No thyromegaly. Cardiovascular Examination: S1 and S2 heard. No murmurs, gallops, or rubs. Regular rate and rhythm. Respiratory Examination: Clear bilaterally to auscultation. No work of breathing or using accessory muscles. There are mild and fine coarse breath sounds in both bases. Patient is not using any accessory muscles. Abdomen: Soft, nontender to palpation. Bowel sounds present. No organomegaly. Extremities: No clubbing, cyanosis, or edema. Peripheral pulses present in both legs. Neurological Examination: Patient alert and oriented x3. Able to walk around. DISCHARGE DISPOSITION: Home to self-care. FOLLOWUP: With Dr. Wayne Delatorre, his primary care physician, in 1-2 weeks. MEDICATIONS: 1. Doxycycline 100 mg 1 tablet p.o. b.i.d. for 1 week. 2. Levofloxacin 750 mg 1 tablet p.o. daily for 1 week. 3. Glimepiride 4 mg 1 tablet p.o. daily. 4. Aspirin 81 mg 1 tablet p.o. daily. 5. Plavix 75 mg 1 tablet p.o. daily. 6. Nexium 40 mg 1 tablet p.o. daily. 7. Pravastatin 80 mg 1 tablet p.o. daily. 8. Pioglitazone 15 mg 1 tablet p.o. daily. 9. Reglan 10 mg 1 tablet p.o. every 6 hours. 10. Budesonide formoterol 2 inhalations twice daily. 11. Amlodipine 1 tablet p.o. b.i.d. DISCHARGE TIME: 35 minutes cc: Nico Rojo MD MTDD
== END 2016-10-01 13:37 | disposition home or self-care (01) ==
LOC: ED 11:41 → EDIPHOLD 16:21 → SUATTDRO 16:21 → 3N 19:07
PROVIDERS: ATTEND Internal Medicine

== ENCOUNTER 2019-04-06 17:43 | Inpatient (IN) ==
[2019-04-06] MEDS ORDERED: NS 1,000 ML IV ONE ×2 (18:06)
[2019-04-06] MEDS ORDERED: HUMULIN R IV ONE (18:06)
--- NOTE | 2019-04-06 18:45 | PROVIDER DOCUMENTATION ---
This chart was entered by Tal Nguyen Scribe, acting as scribe for Berlin Kern MD. HPI-General Adult - General Source: patient, family - History of Present Illness -Gen Adult Nature of Presenting Problems: 78 yof presents to the ed with High Blood Sugar. family states " pcp was treating pt for mouth infection and stated for pt take extra blood sugar pill to help regulate blood sugar with infection." pt stated " blood sugar usually runs around 100's but its over 500 now." pt stated onset symptoms on-going for 3 days. pt stated " having runny noise, cough , N/V and chills." pt stated not having flu shot this year. Location of Pain/Injury: reports: none Pain Radiation: reports: no radiation Quality of Pain: reports: none Severity: reports: mild Onset/Duration: reports: 3 days ago Timing: reports: still present Context/Activities at Onset: reports: none Modifying Factors: improves with: nothing Associated Symptoms: reports: cough, fatigue, fever/chills (chills), nausea, vomiting, weakness. denies: arm pain, back/neck pain, constipation, diarrhea, shortness of breath Similar Symptoms Previously?: No Recently seen or treated by another doctor?: No - Diabetes Related Context Context: reports: high blood sugar <Berlin Kern - Last Filed: 04/06/19 19:46> <Juan Ramon Jaramillo - Last Filed: 04/06/19 21:18> - General Chief Complaint: High Blood Sugar Stated Complaint: SOB, DONT FEEL WELL Time Seen by Provider: 04/06/19 17:57 Allergies/Adverse Reactions: Patient Allergies Allergy/AdvReac Type Severity Reaction Status Date / Time meperidine HCl * AdvReac hallucinati Verified 04/06/19 20:08 [From Demerol] ons Home Medications: Home Medication List Medication Instructions Recorded Confirmed Last Taken Type Aspirin 81 mg PO DAILY 01/20/14 04/06/19 09/26/16 08:00 History Clopidogrel [Plavix] 75 mg PO DAILY 01/20/14 04/06/19 09/26/16 08:00 History Glimepiride 4 mg PO DAILY 01/20/14 04/06/19 09/26/16 08:00 History Metoclopramide [Reglan] 10 mg PO Q6HR #40 tablet 01/20/14 04/06/19 Unknown Rx Pioglitazone HCl 15 mg PO DAILY 01/20/14 04/06/19 09/26/16 08:00 History Pravastatin Sodium 80 mg PO DAILY 01/20/14 04/06/19 09/26/16 08:00 History Amlodipine Besylate 10 mg PO DAILY 04/06/19 04/06/19 Unknown History Chlorthalidone 25 mg PO DAILY 04/06/19 04/06/19 Unknown History Isosorbide Mononitrate E.r. [Imdur] 30 mg PO DAILY 04/06/19 04/06/19 Unknown History Metformin E.r. [Glucophage Xr] 500 mg PO BID 04/06/19 04/06/19 Unknown History Penicillin V Potassium 500 mg PO 4XDAY 04/06/19 04/06/19 Unknown History Tramadol HCl/Acetaminophen 1 tab PO BID PRN 04/06/19 04/06/19 Unknown History [Tramadol-Acetaminophn 37.5-325] Review of Systems - Adult - REVIEW OF SYSTEMS - ADULT Constitutional: reports: chills, fatique. denies: fever, night sweats Eyes: reports: blurred vision. denies: discharge, eye pain Ears, Nose, Mouth & Throat: reports: see HPI, sinus problem. denies: hoarseness, throat pain, throat swelling Cardiovascular: reports: no symptoms reported Respiratory: reports: see HPI, cough. denies: shortness of breath, wheezing Gastrointestinal: reports: nausea, vomiting. denies: constipation, diarrhea Genitourinary: denies: dysuria, frequency, urgency Musculoskeletal: reports: no symptoms reported Integumentary: reports: no symptoms reported Neurological: reports: no symptoms reported Psychiatric: reports: no symptoms reported Endocrine: reports: no symptoms reported Hematologic/Lymphatic: reports: no symptoms reported Allergic/Immunologic: reports: no symptoms reported All Other Systems: Reviewed and Negative <Berlin Kern - Last Filed: 04/06/19 19:46> Past History - Adult - PAST MEDICAL HISTORY-ADULT Review of Records: reports: Old Records Reviewed, Nursing Assessment Review, Medications Reviewed, Social history reviewed & non-contributory. Major Childhood Illnesses: reports: history unknown Cardiovascular: reports: HTN, hyperlipidemia Respiratory: reports: denies history Gastrointestinal: reports: GERD Obstetrical/Gynecological: reports: denies history Genitourinary: reports: denies history Musculoskeletal: reports: denies history Neurological: reports: CVA, stroke deficits (right sided) Psychiatric: reports: denies history Endocrine/Immune: reports: Diabetes Other Conditions: reports: denies history - PRIOR SURGERIES/PROCEDURES Surgical/Procedure History: reports: hysterectomy - PRIOR HOSPITALIZATIONS Prior Hospitalizations: reports: none - IMMUNIZATION STATUS Childhood Immunizations: See Nurse Assessment Flu Vaccine: See Nurse Assessment - FAMILY HISTORY Family History: reviewed, not pertinent - SOCIAL HISTORY Smoking: denies Substance Use: denies <Berlin Kern - Last Filed: 04/06/19 19:46> Physical Exam-General - PHYSICAL EXAM-ADULT Initial Vital Signs Reviewed: Yes - CONSTITUTIONAL General Appearance: appears well, alert, mild distress - HEAD, EARS, NOSE, MOUTH & THROAT HENMT: other (pt on mouth exam has poor indications and top molar carry). negative: moist mucous membranes (on exam dry) - RESPIRATORY Respiratory: chest non-tender, lungs clear, normal breath sounds, no pleuratic chest pain, no respiratory distress, no accessory muscle use - CARDIOVASCULAR Cardiovascular: no edema, no gallop, no murmur, tachycardia (106) - CHEST (BREASTS) Chest/Breast: deferred - GASTROINTESTINAL (ABDOMEN) Abdominal Exam: normal bowel sounds, soft, tenderness (Mild RUQ) - GENITOURINARY Female Genitalia/Pelvic Exam: deferred Rectal Exam: deferred Hemoccult Exam: deferred - SKIN Integumentary: normal color, normal turgor, warm/dry - NEUROLOGIC Neurologic: grossly normal, no motor/sensory deficits - PSYCHIATRIC Psych/Mental Status: normal mood/affect, normal thought content, normal thought process, oriented x 3 <Berlin Kern - Last Filed: 04/06/19 19:46> Progress - PLAN OF CARE/RESULTS Progress/Plan/Lab Results: Vital Signs - 8 hr 04/06/19 17:50 Temperature 98.2 F Pulse Rate 106 H Respiratory Rate 19 Blood Pressure 132/60 O2 Sat by Pulse Oximetry 100 Laboratory Results - last 24 hr 04/06/19 17:55 POC Glucose 500 H D Result Diagrams: 04/06/19 19:34 - REASSESSMENT Reassessment #1 Time Reassessed: 18:44 Status: improving (Given 2L of NS and 10U of Reg Insulin IV) - EKG 1 Time of EKG reading by physician:: 18:33 EKG Read and Signed by:: Berlin Kern EKG Interpretation (*Must complete 3 of following elements*): Abnormal Rate: 99 Rhythm: NSR [place]: left (Left axis deviation) QRS: other (Abnormal QRS-T angle , consider primary T wave abnormality) ST Wave: normal - XRAY 1 XRAY Study: Chest Impression: See EMR Report (CHEST-2 VIEWS - 04/06/2019 INDICATION: short of breath COMPARISON: 10/13/2016 FINDINGS: Lung volumes are severely low with bibasilar atelectasis. Stable mild cardiomegaly and pulmonary vascular congestion. No infiltrates or definite edema. No large pleural effusion. IMPRESSION: Nonspecific findings. Electronically signed by Al Lawrence 04/06/2019 7:10 PM 04/06/191909 Interpreting Physician: Al Lawrence MD Dictated Date/Time: 04/06/19 190 cc: Berlin Kern MD; Wayne Delatorre MD) - CHANGE OF SHIFT REPORT (ED Provider) 1 Report Given and Care Transferred to:: Dr. Jaramillo Time of Transfer: 19:00 Items Pending: Labs, XRAY Results <Berlin Kern - Last Filed: 04/06/19 19:46> - PLAN OF CARE/RESULTS Progress/Plan/Lab Results: Vital Signs - 8 hr 04/06/19 17:50 04/06/19 18:06 04/06/19 18:08 Temperature 98.2 F Pulse Rate 106 H Respiratory Rate 19 Blood Pressure 132/60 151/56 O2 Sat by Pulse Oximetry 100 97 96 04/06/19 18:22 04/06/19 18:30 04/06/19 18:45 Temperature Pulse Rate Respiratory Rate Blood Pressure 163/66 O2 Sat by Pulse Oximetry 100 100 100 04/06/19 19:00 04/06/19 19:21 04/06/19 19:30 Temperature Pulse Rate Respiratory Rate Blood Pressure O2 Sat by Pulse Oximetry 98 94 L 99 04/06/19 19:36 04/06/19 19:45 04/06/19 20:00 Temperature Pulse Rate Respiratory Rate Blood Pressure 154/73 162/60 O2 Sat by Pulse Oximetry 81 L 97 99 04/06/19 20:16 04/06/19 20:30 04/06/19 20:45 Temperature 99 F Pulse Rate Respiratory Rate Blood Pressure 164/65 O2 Sat by Pulse Oximetry 97 100 99 04/06/19 21:00 Temperature 97.9 F Pulse Rate Respiratory Rate Blood Pressure O2 Sat by Pulse Oximetry 98 04/06/19 18:36 Influenza Screen - Final Nasopharyngeal Laboratory Results - last 24 hr 04/06/19 04/06/19 04/06/19 17:55 18:40 19:19 WBC RBC Hgb Hct MCV MCH MCHC RDW Std Deviation Plt Count MPV Immature Gran % (Auto) Neut % (Auto) Lymph % (Auto) [place] % (Auto) Eos % (Auto) Baso % (Auto) Immature Gran # (Auto) Neut # (Auto) Lymph # (Auto) [place] # (Auto) Eos # (Auto) Baso # (Auto) PT INR Specimen Type ARTERIAL Sample Site R RADIAL pH 7.34 L pCO2 33 L pO2 136 H HCO3 19.3 L Base Excess -7.3 L Oxyhemoglobin 97.1 ABG O2 Sat (Calculated) 8.3 L ABG O2 Saturation 100.5 H ABG Carboxyhemoglobin 2.40 ABG Methemoglobin 1.0 Oscar Test YES A-a O2 Difference -28.0 Total Hemoglobin 5.8 L Lactate 4.60 H* Blood Gas Modality ROOM AIR FiO2 % 21.0 Sodium Potassium Chloride Carbon Dioxide Anion Gap BUN Creatinine Estimated GFR/1.73 m2 BUN/Creatinine Ratio Glucose POC Glucose 500 H D Calculated Osmolality Calcium Magnesium Total Bilirubin AST ALT Alkaline Phosphatase Creatine Kinase Troponin T [id number] Pept Total Protein Albumin Globulin Albumin/Globulin Ratio Lipase Plasma Lactate Urine Source CLEAN CATCH Urine Color STRAW Urine Turbidity CLEAR Urine pH 6.0 Ur Specific [place] 1.014 Urine Protein TRACE A Ur Glucose (Stick) >1000 A Ur Ketones (Stick) NEGATIVE Urine Blood NEGATIVE Urine Nitrite NEGATIVE Urine Bilirubin NEGATIVE Urobilinogen Dipstick NORMAL Urine Leukocytes NEGATIVE Urine WBC (Auto) <10 Urine RBC (Auto) <10 U Epithel Cells (Auto) <10 Urine Bacteria (Auto) NEGATIVE Acetone Level 04/06/19 04/06/19 04/06/19 19:34 19:34 19:34 WBC 15.94 H RBC 2.21 L Hgb 5.4 L* Hct 17.3 L MCV 78.3 L MCH 24.4 L MCHC 31.2 L RDW Std Deviation 15.1 H Plt Count 187 MPV 10.8 H Immature Gran % (Auto) 0.6 H Neut % (Auto) 90.9 H Lymph % (Auto) 5.5 L [place] % (Auto) 2.9 Eos % (Auto) 0.0 Baso % (Auto) 0.1 Immature Gran # (Auto) 0.10 H Neut # (Auto) 14.48 H Lymph # (Auto) 0.87 L [place] # (Auto) 0.47 Eos # (Auto) 0.00 Baso # (Auto) 0.02 PT INR Specimen Type Sample Site pH pCO2 pO2 HCO3 Base Excess Oxyhemoglobin ABG O2 Sat (Calculated) ABG O2 Saturation ABG Carboxyhemoglobin ABG Methemoglobin Oscar Test A-a O2 Difference Total Hemoglobin Lactate Blood Gas Modality FiO2 % Sodium 136 Potassium 5.3 H Chloride 98 Carbon Dioxide 19 L Anion Gap 19 BUN 103 H Creatinine 2.4 H Estimated GFR/1.73 m2 24 BUN/Creatinine Ratio 43 Glucose 538 H* POC Glucose Calculated Osmolality 329 Calcium 9.9 Magnesium 1.7 Total Bilirubin < 0.15 L AST 10 ALT 9 L Alkaline Phosphatase 35 Creatine Kinase 78 Troponin T [id number] Pept Total Protein 5.7 L Albumin 3.5 Globulin 2.2 Albumin/Globulin Ratio 1.6 Lipase 19 Plasma Lactate 5.2 H* Urine Source Urine Color Urine Turbidity Urine pH Ur Specific [place] Urine Protein Ur Glucose (Stick) Ur Ketones (Stick) Urine Blood Urine Nitrite Urine Bilirubin Urobilinogen Dipstick Urine Leukocytes Urine WBC (Auto) Urine RBC (Auto) U Epithel Cells (Auto) Urine Bacteria (Auto) Acetone Level NEGATIVE 04/06/19 04/06/19 04/06/19 19:34 19:34 19:34 WBC RBC Hgb Hct MCV MCH MCHC RDW Std Deviation Plt Count MPV Immature Gran % (Auto) Neut % (Auto) Lymph % (Auto) [place] % (Auto) Eos % (Auto) Baso % (Auto) Immature Gran # (Auto) Neut # (Auto) Lymph # (Auto) [place] # (Auto) Eos # (Auto) Baso # (Auto) PT 15.4 INR 1.20 Specimen Type Sample Site pH pCO2 pO2 HCO3 Base Excess Oxyhemoglobin ABG O2 Sat (Calculated) ABG O2 Saturation ABG Carboxyhemoglobin ABG Methemoglobin Oscar Test A-a O2 Difference Total Hemoglobin Lactate Blood Gas Modality FiO2 % Sodium Potassium Chloride Carbon Dioxide Anion Gap BUN Creatinine Estimated GFR/1.73 m2 BUN/Creatinine Ratio Glucose POC Glucose Calculated Osmolality Calcium Magnesium Total Bilirubin AST ALT Alkaline Phosphatase Creatine Kinase Troponin T 0.034 [id number] Pept 197 Total Protein Albumin Globulin Albumin/Globulin Ratio Lipase Plasma Lactate Urine Source Urine Color Urine Turbidity Urine pH Ur Specific [place] Urine Protein Ur Glucose (Stick) Ur Ketones (Stick) Urine Blood Urine Nitrite Urine Bilirubin Urobilinogen Dipstick Urine Leukocytes Urine WBC (Auto) Urine RBC (Auto) U Epithel Cells (Auto) Urine Bacteria (Auto) Acetone Level 04/06/19 04/06/19 19:43 21:02 WBC RBC Hgb Hct MCV MCH MCHC RDW Std Deviation Plt Count MPV Immature Gran % (Auto) Neut % (Auto) Lymph % (Auto) [place] % (Auto) Eos % (Auto) Baso % (Auto) Immature Gran # (Auto) Neut # (Auto) Lymph # (Auto) [place] # (Auto) Eos # (Auto) Baso # (Auto) PT INR Specimen Type Sample Site pH pCO2 pO2 HCO3 Base Excess Oxyhemoglobin ABG O2 Sat (Calculated) ABG O2 Saturation ABG Carboxyhemoglobin ABG Methemoglobin Oscar Test A-a O2 Difference Total Hemoglobin Lactate Blood Gas Modality FiO2 % Sodium Potassium Chloride Carbon Dioxide Anion Gap BUN Creatinine Estimated GFR/1.73 m2 BUN/Creatinine Ratio Glucose POC Glucose 466 H 377 H Calculated Osmolality Calcium Magnesium Total Bilirubin AST ALT Alkaline Phosphatase Creatine Kinase Troponin T [id number] Pept Total Protein Albumin Globulin Albumin/Globulin Ratio Lipase Plasma Lactate Urine Source Urine Color Urine Turbidity Urine pH Ur Specific [place] Urine Protein Ur Glucose (Stick) Ur Ketones (Stick) Urine Blood Urine Nitrite Urine Bilirubin Urobilinogen Dipstick Urine Leukocytes Urine WBC (Auto) Urine RBC (Auto) U Epithel Cells (Auto) Urine Bacteria (Auto) Acetone Level Orders Category Date Time Status Nursing- Obtain EKG once Care 04/06/19 18:04 Active Saline Loc NOW Care 04/06/19 18:04 Active CHEST-2 VIEWS [RAD] Stat Exams 04/06/19 18:06 Completed ABG [RESP] Routine Lab 04/06/19 18:40 Completed ACETONE SERUM [CHEM] Stat Lab 04/06/19 19:34 Completed BLOOD CULTURE [BLDCUL] Stat Lab 04/06/19 20:44 Results CBC WITH ELECTRONIC DIFF [HEME] Stat Lab 04/06/19 19:34 Completed CK PROFILE [SP CHEM] Stat Lab 04/06/19 19:34 Completed COMPREHENSIVE METABOLIC PANEL [CHEM] Stat Lab 04/06/19 19:34 Completed DIRECT STREP Stat Lab 04/06/19 18:05 Ordered INFLUENZA SCREEN A/B Stat Lab 04/06/19 18:36 Completed LACTATE, PLASMA [CHEM] Stat Lab 04/06/19 19:34 Completed LACTATE, PLASMA [CHEM] Stat Lab 04/06/19 21:12 Ordered LIPASE [CHEM] Stat Lab 04/06/19 19:34 Completed MAGNESIUM [CHEM] Stat Lab 04/06/19 19:34 Completed PRO B-NATRIURETIC PEPTIDE Stat Lab 04/06/19 19:34 Completed PROTIME WITH INR [COAG] Stat Lab 04/06/19 19:34 Completed TROPONIN T Stat Lab 04/06/19 19:34 Completed TYPE & SCREEN [BBK] Stat Lab 04/06/19 20:44 Results URINALYSIS W/POSS RFLX CULT [URINALYSIS] Stat Lab 04/06/19 19:19 Completed 0.9% Sodium Chloride Inj [Ns] 1,000 ml Med 04/06/19 18:06 Discontinued IV 999 mls/hr 0.9% Sodium Chloride Inj [Ns] 1,000 ml Med 04/06/19 18:06 Discontinued IV 999 mls/hr Insulin Human Regular [Humulin R] Med 04/06/19 18:06 Discontinued 10 unit IV NOW ONE EKG [EKG] Stat Ther 04/06/19 18:05 Draft Result Diagrams: 04/06/19 19:34 04/06/19 19:34 - CONSULTS/PCP/HOSPITALIST Notification #1 *Consult/PCP/Hospitalist*: Dr Santos Time Discussed: 21:16 Consult Disposition: Will see in ED <Juan Ramon Jaramillo - Last Filed: 04/06/19 21:18> Departure - Departure Date of Disposition Decision: 04/06/19 Certified Medical Emergency: Emergent - Critical Care Note This patient required my direct & personal management of CC.: No <Berlin Kern - Last Filed: 04/06/19 19:46> - Departure Time of Disposition Decision: 21:17 Certified Medical Emergency: Emergent <Juan Ramon Jaramillo - Last Filed: 04/06/19 21:18> - Departure DIAGNOSIS: Anemia, Sepsis Disposition: ADMITTED INPATIENT 09 Condition: Critical Referrals and Follow-Ups: Wayne Delatorre MD [Primary Care Provider] - Attestation - Physician/ OPAL Attestation Patient care was provided by Advanced Practice Provider:: No The physician spent face to face time with patient:: Yes Advanced Practice Provider documentation review:: Supervising physician onsite and consulted in the evaluation and care of this patient. The physician did have a face to face encounter with the patient. <Berlin Kern - Last Filed: 04/06/19 19:46> This chart was documented by the indicated scribe, (Tal Nguyen, Scrnain) and accurately reflects the services I performed and decisions made by Concha pierson Kent A., MD, as attested by the provider's signature.
[2019-04-06 18:49] LABS: BE -7.3 mmoll (-3.0-3.0); BLOOD TYPE ARTERIAL; HCO3-(ACT) 19.3 mmoll (20.0-26.0); O2(CT) 8.3 mL/dL (15.0-23.0); O2HB 97.1 % (95.0-99.0); PCO2(98.6) 33 mmHg (35-45); PO2(98.6) 136 mmHg (60-100); SAMPLE BLOOD; SAO2 100.5 % (95.0-100.0); THB 5.8 g/dL (11.5-17.4); pH(98.6) 7.34 (7.35-7.45)
[2019-04-06 18:51] LABS: ALLEN TEST YES; MODALITY ROOM AIR
--- NOTE | 2019-04-06 19:12 | Diag Imaging Result Doc PS360 ---
CHEST-2 VIEWS - 04/06/2019 INDICATION: short of breath COMPARISON: 10/13/2016 FINDINGS: Lung volumes are severely low with bibasilar atelectasis. Stable mild cardiomegaly and pulmonary vascular congestion. No infiltrates or definite edema. No large pleural effusion. IMPRESSION: Nonspecific findings. Electronically signed by Al Lawrence 04/06/2019 7:10 PM
[2019-04-06 19:26] LABS: URINE SOURCE CLEAN CATCH
[2019-04-06 19:31] LABS: BILIRUBIN URINE NEGATIVE (NEGATIVE); BLOOD URINE NEGATIVE (NEGATIVE); COLOR STRAW; GLUCOSE URINE >1000 mg/dL (NEGATIVE); KETONE URINE NEGATIVE (NEGATIVE); LEUKOCYTES URINE NEGATIVE (NEGATIVE); NITRITE URINE NEGATIVE (NEGATIVE); PROTEIN URINE TRACE mg/dL (NEGATIVE); SP GRAVITY URINE 1.014; TURBIDITY URINE CLEAR (CLEAR); UR EPITHELIAL CELLS <10 /HPF (<10); URINE BACTERIA NEGATIVE /HPF; URINE RBC <10 /HPF (<10); URINE WBC <10 /HPF (<10); UROBILINOGEN URINE NORMAL (NORMAL)
--- NOTE | 2019-04-06 19:35 | EKG Report ---
Test Performed on : 04/06/2019 6:33:03 PM Test Reason : hyperglycemia Blood Pressure : / mmHG Vent. Rate : 099 BPM Atrial Rate : 099 BPM P-R Int : 198 ms QRS Dur : 094 ms QT Int : 362 ms P-R-T Axes : 075 -37 101 degrees QTc Int : 464 ms Normal sinus rhythm. Left axis deviation Abnormal QRS-T angle, consider primary T wave abnormality Abnormal ECG When compared with ECG of 24-SEP-2016 22:14, Borderline criteria for Anterior infarct are no longer present Unconfirmed Result
[2019-04-06 19:54] LABS: INR 1.2; PROTIME 15.4 Seconds (11.0-16.0)
[2019-04-06 20:02] LABS: BASO# 0.02 X1000 (0.0-0.2); BASO% 0.1 % (0.0-0.8); HEMATOCRIT 17.3 % (37.0-47.0); IMM GRAN% 0.6 % (0.0-0.5); LYMPH# 0.87 X1000 (1.2-3.4); LYMPH% 5.5 % (20.5-51.1); MCH 24.4 PG (27-31); MCHC 31.2 g/dL (33-37); MCV 78.3 FL (81-99); MONO# 0.47 X1000 (0.11-0.59); MONO% 2.9 % (1.7-9.3); MPV 10.8 FL (7.4-10.4); NEUT# 14.48 X1000 (1.4-6.5); NEUT% 90.9 % (42.2-75.2); PLT 187 X1000 (130-400); RBC 2.21 XMIL (4.2-5.4); RDW 15.1 % (11.5-14.5); WBC 15.94 X1000 (4.8-10.8)
[2019-04-06 20:05] LABS: HEMOGLOBIN 5.4 g/dL (12.0-16.0)
[2019-04-06 20:07] LABS: AGAP 19; ALB/GLOB RATIO 1.6; ALBUMIN 3.5 g/dL (3.5-5.0); ALKALINE PHOSPHATASE 35 U/L (32-104); BUN 103 mg/dL (8-22); CALCIUM 9.9 mg/dL (8.8-10.2); CHLORIDE 98 mmol/L (98-107); CK PROFILE 78 U/L (24-173); COSMO 329; CREATININE 2.4 mg/dL (0.5-0.9); ESTIMATED GFR 24; GOT 10 U/L (10-30); GPT 9 U/L (10-36); LIPASE 19 U/L (13-60); MAGNESIUM 1.7 mg/dL (1.5-2.7); POTASSIUM 5.3 mmol/L (3.5-5.1); SODIUM 136 mmol/L (136-145); TCO2 19 mmol/L (25-35); TOTAL BILIRUBIN < 0.15 mg/dL (0.20-1.00); TOTAL PROTEIN 5.7 g/dL (6.3-8.3)
[2019-04-06 20:09] LABS: ACETONE SERUM NEGATIVE (NEGATIVE)
[2019-04-06 20:16] LABS: GLUCOSE 538 mg/dL (70-104)
[2019-04-06] MEDS ORDERED: ZOFRAN IV PRN (21:38)
[2019-04-06] MEDS ORDERED: NS 1,000 ML IV SCH ×2 (21:45→23:29)
[2019-04-06] MEDS ORDERED: SODIUM CHLORIDE 0.9% INJ SCH (22:00)
[2019-04-06] MEDS ORDERED: KAYEXALATE PO ONE (22:20)
[2019-04-06] MEDS ORDERED: NS 250 ML ONE (23:23)
[2019-04-06] MEDS: ZOSYN 2.25 GM in NS 50 ML IV SCH (23:36)
[2019-04-06] MEDS: LANTUS INSULIN SUBQ SCH (23:37)
[2019-04-06] MEDS: PROTONIX IV SCH (23:37)
[2019-04-07] MEDS: COREG PO SCH ×3 (00:13→21:54)
--- NOTE | 2019-04-07 01:07 | HISTORY AND PHYSICAL ---
CHIEF COMPLAINT: Elevated blood sugar. HISTORY OF PRESENT ILLNESS: Ms. Nidia Witt is a 78-year-old female who has a history of hypertension, diabetes mellitus, chronic kidney disease, hyperlipidemia, history of previous cerebrovascular accident and was referred to the hospital by the office of her primary care physician because her blood sugar levels were noted to be elevated. According to the patient, her blood sugar was as high as 600. The patient has been taking antibiotics for possible dental infection. On presentation to the ER, the patient's blood sugar was found to be about 538, her pH was 7.34 with anion gap of 19. She is noted to have some renal impairment, BUN/creatinine of 103/2.4. She was found to be profoundly anemic with a hematocrit of 17.3. The patient admits to having blackish stool. She takes aspirin as well as Plavix. The patient will now be admitted to the floor now for further management. PAST MEDICAL HISTORY: Diabetes mellitus type 2, chronic kidney disease stage 3, hypertension, gastroesophageal reflux disease, hyperlipidemia, history of CVA as well as anemia. PAST SURGICAL HISTORY: She has had a hysterectomy as well as right femoral- popliteal procedure. SOCIAL HISTORY: She denies any history of cigarette smoking, alcohol or drug use. FAMILY HISTORY: Positive for hypertension as well as diabetes. ALLERGIES: She is allergic to meperidine hydrochloride. HOME MEDICATIONS INCLUDE THE FOLLOWIN. Aspirin 81 mg p.o. once a day. 2. Plavix 75 mg p.o. once a day. 3. Glimepiride 4 mg p.o. daily. 4. Reglan 10 mg every 6 hours. 5. Pioglitazone 50 mg p.o. daily. 6. Pravastatin 80 mg p.o. daily. 7. Amlodipine besylate 10 mg p.o. daily. 8. Chlorthalidone 25 mg p.o. once a day. 9. Isosorbide mononitrate 30 mg p.o. daily. 10. Metformin 500 mg p.o. twice a day. 11. Penicillin V potassium 500 mg p.o. 4 times a day. 12. Tramadol hydrochloride/acetaminophen 1 tablet twice a day p.r.n. REVIEW OF SYSTEMS: Constitutional: No fever. 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 Eyes: Patient uses glasses. ENT: No sinus problems. No hearing loss. Cardiovascular: No chest pain. Respiratory: No cough. gastrointestinal: No nausea, vomiting, diarrhea, or abdominal pain. Genitourinary: No dysuria. Dermatology: No skin lesions. Hematology: No bleeding disorder. Musculoskeletal: No joint pains. Endocrinology: Has diabetes but no thyroid disease. Allergy/immunology: No current symptoms suggestive of allergic rhinitis. Psychiatric: No anxiety or depression. EXAMINATION: Vital Signs Are As Follows: Temperature is 98.3 degrees, pulse 92, respiratory rate is 19, and blood pressure is 188/75, oxygen saturation 100%. HEENT: She is atraumatic, normocephalic. She is anicteric. Extraocular movements intact. Pupils are equal, poorly reactive to light. No oral lesions noted. Neck: No lymphadenopathy or thyromegaly. Cardiovascular: S1, S2. No gallops, rubs, or murmurs. Respiratory system: Has evidence of good air entry bilaterally. Abdomen: Soft, nontender. No masses felt. Extremities: No evidence of edema. Central nervous system: No obvious focal deficit noted. LABORATORIES: WBC is 15.94, hematocrit is 17.3, with a platelet count of 187,000. ABG 7.34/33/136/100.5. Sodium is 136, potassium 5.3, chloride 98, bicarb is 19, BUN is 103, creatinine 2.4. Blood glucose 538, lactate 4.9. Acetaminophen level is negative. Chest x-ray shows mild cardiomegaly and pulmonary vascular congestion. EKG shows a normal sinus rhythm, left axis deviation. Abnormal QRS-T angle. ASSESSMENT AND PLAN: 1. Uncontrolled type 2 diabetes mellitus. Maintain patient on sliding scale insulin as well as long-acting insulin. Monitor blood sugar levels. Check hemoglobin A1c level. 2. Profound anemia. We will check iron studies, B12 and folate level. Check stool for occult blood. We will type and cross, transfuse 2 units of packed red blood cells. Follow up on hemoglobin, hematocrit. 3. Probable gastrointestinal bleed. We will hold off on anti-platelet agents at this time. Maintain patient on proton pump inhibitor. Consult with Gastroenterology for GI endoscopic studies. 4. Chronic kidney disease stage 4. Closely follow up on patient's renal function. Avoid nephrotoxic agent. 5. Hyperkalemia. Will give a dose of Kayexalate 15 g and follow up on patient's potassium level. 6. Hypertension. Optimize blood pressure control using oral agents. 7. Mild cardiomegaly with pulmonary vascular congestion. Will obtain 2D echo of the heart. 8. Leukocytosis. Etiology not clear. Follow up on blood cultures, follow up on white count. 9. History of cerebrovascular accident. Antiplatelets currently on hold in light of possible gastrointestinal bleed. Continue statin. Physical therapy when considered appropriate. 10. Right femoral-popliteal procedure. Aware. 11. Gastroesophageal reflux disease. Continue proton pump inhibitor. 12. Deep vein thrombosis prophylaxis. Sequential compression devices. cc: Jason Santos MD MTDD
[2019-04-07] MEDS: ZOSYN 2.25 GM in NS 50 ML IV SCH ×4 (05:51→21:59)
[2019-04-07 06:40] LABS: BASO# 0.02 X1000 (0.0-0.2); BASO% 0.1 % (0.0-0.8); EOS# 0.01 X1000 (0.0-0.7); EOS% 0.1 % (0.0-10.0); HEMATOCRIT 23.2 % (37.0-47.0); HEMOGLOBIN 7.4 g/dL (12.0-16.0); IMM GRAN% 0.7 % (0.0-0.5); LYMPH% 11.7 % (20.5-51.1); MCH 25.7 PG (27-31); MCHC 31.9 g/dL (33-37); MCV 80.6 FL (81-99); MONO# 0.69 X1000 (0.11-0.59); MPV 10.5 FL (7.4-10.4); NEUT# 11.25 X1000 (1.4-6.5); NEUT% 82.4 % (42.2-75.2); PLT 156 X1000 (130-400); RBC 2.88 XMIL (4.2-5.4); RDW 14.9 % (11.5-14.5); WBC 13.67 X1000 (4.8-10.8)
[2019-04-07 06:45] LABS: HEMOGLOBIN A1C 8.2 % (4.8-6.0)
[2019-04-07] MEDS: HUMULIN R SUBQ SCH ×4 (06:47→21:54)
[2019-04-07] MEDS ORDERED: HUMULIN R SUBQ SCH (07:00)
[2019-04-07 07:23] LABS: ALB/GLOB RATIO 1.6; ALBUMIN 3.5 g/dL (3.5-5.0); CALCIUM 8.8 mg/dL (8.8-10.2); CREATININE 2.2 mg/dL (0.5-0.9); POTASSIUM 4.4 mmol/L (3.5-5.1); TOTAL BILIRUBIN 0.35 mg/dL (0.20-1.00); TOTAL PROTEIN 5.7 g/dL (6.3-8.3)
[2019-04-07] MEDS: PRAVACHOL PO SCH (10:04)
[2019-04-07] MEDS: NORVASC PO SCH (10:05)
[2019-04-07] MEDS: LANTUS INSULIN SUBQ SCH ×2 (10:05→21:55)
[2019-04-07 10:07] LABS: RETIC% 2.21 % (0.8-2.1); RETIC-HE 30.2 PG (28.2-36.6)
[2019-04-07] MEDS ORDERED: VENOFER 300 MG in NS 250 ML IV ONE (11:39)
[2019-04-07] MEDS: NS 1,000 ML IV SCH (12:00)
--- NOTE | 2019-04-07 14:07 | PROGRESS NOTE ---
DATE: 04/07/2019 SUBJECTIVE: This morning, Ms. Witt refers to be feeling a lot stronger. She presented to the emergency department because she said her glucose was extremely high. She also said that she felt kind of dizzy yesterday. Upon presenting to the emergency department, she was found to be extremely hyperglycemic. She was also found to be very anemic. OBJECTIVE: Current Vital Signs: Currently, her blood pressures are a lot better. Blood pressure is 142/49, pulse of 84, respirations 18, temperature 98 degrees, the patient is saturating 100%. General: Ms. Witt is a 78-year-old female. She is in bed. No distress. HEENT: Mucosa is slightly pale. Anicteric. Acyanotic. Mouth: The patient has multiple dental decay. Neck: Supple. Chest: Clear to auscultation. No crepitations. No rhonchi. Cardiovascular: Regular rate and rhythm. Abdomen: Soft, nontender. Extremities: No pedal edema. 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 LABORATORY DATA: WBC is 13.69, hemoglobin is 7.4, platelet count of 156,000. Chemistry is also reviewed. Creatinine is 2.2, which seems to be the patient's actually baseline from 2017. However, her BUN is remarkably high, came in with 103, is currently 79. ASSESSMENT: 1. Hyperosmolar hyperglycemic nonketotic state on presentation, improved. 2. Dehydration with lactic acidosis. 3. Microcytic anemia with iron deficiency likely from chronic GI blood lose. 4. Fecal occult blood positive associated with elevated BUN, all concerning for gastrointestinal bleed. The patient is currently on a proton pump inhibitor, and Gastroenterology has been consulted. 5. Symptomatic anemia on presentation. The patient is status post 2 packed red blood cells transfusions. Hemoglobin and hematocrit have improved. We will replace her iron as well. 6. Diabetes mellitus with presenting A1c of 8.2. The patient is on oral hypoglycemic agents at home. She has been started on insulin, we and will continue on the insulin regimen. Upon discharge, I think she will be okay to go back on her oral hypoglycemic agent. However, because she has chronic kidney disease stage 4, it will probably be reasonable to stick to insulin regimen. 7. Chronic kidney disease stage IV. Noted. Creatinine is stable. cc: Francisco Small MD [facility]
--- NOTE | 2019-04-07 15:51 | PALLIATIVE CARE CONSULTATION ---
DATE: 04/07/2019 Detailed note to follow. IMPRESSION AND PLAN: 1. Profound microcytic anemia. 2. Possible gastrointestinal blood loss. 3. Chronic kidney disease. 4. Uncontrolled diabetes mellitus. Will at least plan on doing both upper and lower GI endoscopy but I would like to wait another day until she feels better and her sugar is better controlled, probably Monday. cc: Mahesh Edge MD
--- NOTE | 2019-04-07 16:50 | ECHO REPORT ---
ORDER DATE: 04/06/2019 ECHOCARDIOGRAPHIC MEASUREMENTS: 1. Interventricular septum 1.1. 2. Left ventricular posterior wall 1.0. 3. Diastolic diameter 4.1. 4. Left atrium 3.7. 5. Aorta 3.1. SUMMARY: 1. Aortic valve leaflets are trileaflet. 2. Mitral valve was normal. 3. Tricuspid valve was normal. 4. Pulmonic valve was normal. 5. Normal left ventricular cavity size. Estimated ejection fraction of 60%. 6. By Doppler studies there is no aortic stenosis or regurgitation. 7. There is mild tricuspid regurgitation. 8. Peak velocity across the tricuspid valve was 3 m/sec. 9. Pulmonary artery systolic pressure of 46 mmHg. 10. There is grade 1 diastolic dysfunction. 11. There is mild left atrial enlargement. 12. There is trace to mild mitral regurgitation. 13. There is no pericardial effusion or obvious intracardiac mass or thrombus seen. cc: MD Jason Nair MD
[2019-04-07] MEDS: SODIUM CHLORIDE 0.9% INJ PRN (21:54)
[2019-04-07] MEDS: PROTONIX IV SCH (21:54)
[2019-04-08] MEDS: ZOSYN 2.25 GM in NS 50 ML IV SCH ×4 (06:03→23:41)
[2019-04-08] MEDS: HUMULIN R SUBQ SCH ×4 (06:03→20:56)
[2019-04-08 07:24] LABS: HEMATOCRIT 23.3 % (37.0-47.0); HEMOGLOBIN 7.6 g/dL (12.0-16.0); MCHC 32.6 g/dL (33-37); MCV 82.9 FL (81-99); MPV 10.1 FL (7.4-10.4); RBC 2.81 XMIL (4.2-5.4); RDW 15.7 % (11.5-14.5); WBC 11.18 X1000 (4.8-10.8)
--- NOTE | 2019-04-08 07:38 | EKG Report ---
Test Performed on : 04/08/2019 07:25:11 AM Test Reason : chest pain Blood Pressure : / mmHG Vent. Rate : 060 BPM Atrial Rate : 060 BPM P-R Int : 208 ms QRS Dur : 104 ms QT Int : 434 ms P-R-T Axes : 073 -45 015 degrees QTc Int : 434 ms Normal sinus rhythm. Left axis deviation Abnormal ECG When compared with ECG of 06-APR-2019 18:33, (Unconfirmed) Vent. rate has decreased BY 39 BPM Nonspecific T wave abnormality now evident in Inferior leads Unconfirmed Result
[2019-04-08 08:13] LABS: ALBUMIN 3.4 g/dL (3.5-5.0); CALCIUM 9.1 mg/dL (8.8-10.2); CREATININE 2.2 mg/dL (0.5-0.9); PHOSPHORUS 3.7 mg/dL (2.7-4.5); POTASSIUM 4.3 mmol/L (3.5-5.1)
[2019-04-08] MEDS: LANTUS INSULIN SUBQ SCH ×2 (09:34→20:56)
[2019-04-08] MEDS: COREG PO SCH ×2 (09:34→20:56)
[2019-04-08] MEDS: NORVASC PO SCH (09:34)
[2019-04-08] MEDS: PRAVACHOL PO SCH (09:34)
[2019-04-08] MEDS: NS 1,000 ML IV SCH ×2 (09:35)
--- NOTE | 2019-04-08 11:20 | PROGRESS NOTE ---
DATE: 04/08/2019 SUBJECTIVE: This morning, Ms. Witt refers to be doing well. She was requesting to see when she can be discharged. Ms. Witt denies having any chest pain or any coffee- grounds emesis. She has not had any bowel movement. OBJECTIVE: Vital Signs: Blood pressure was 123/48, pulse of 60, respirations 18, temperature is 98.3 degrees. General: Ms. Witt is a 78-year-old female. She is in bed. She is not in any cardiopulmonary distress. HEENT: Mucosa is slightly pale, but anicteric and acyanotic. Mouth: There are multiple decayed teeth. Neck: Supple. Chest: Good air entry bilaterally. There were no crepitations, no rhonchi. Cardiovascular: Regular rate and rhythm. GI: Abdomen was soft, nontender. Bowel sounds were present. There was no hepatosplenomegaly. Extremities: No pedal edema. 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 LABORATORY DATA: WBC is 11.18, hemoglobin is 7.36, platelet count is 170,000. Chemistry is also reviewed. Sodium is 149, potassium is 4.3, chloride is 111, bicarb is 24, creatinine is 2.2. The patient's troponin went up to 1.36, 1.77, and this morning it is 1.59. The patient is status post 2 PRBC transfusion. ASSESSMENT: 1. Hyperosmolar hyperglycemic nonketotic state on presentation, improved. The patient's glucose levels have remarkably improved with insulin regimen. 2. Dehydration with lactic acidosis, improved. 3. Microcytic anemia with iron deficiency, suspected to be due to chronic gastrointestinal blood loss. The patient is status post 2 packed red blood cells transfusion. Hemoglobin and hematocrit have improved. Gastroenterology has evaluated her. There is a plan for possible esophagogastroduodenoscopy tomorrow. 4. Diabetes mellitus with presenting A1c of 8.2. Noted. 5. Chronic kidney disease stage 4. Noted. 6. Elevated troponins. This is probably all related to demand ischemia from the severe anemia. However, Ms. Witt is diabetic. She is also hypertensive. She has chronic kidney disease, and elderly. She is at risk of coronary artery disease. Her electrocardiograms have not shown any ST-segment or T-waves abnormality. Will get Cardiology to evaluate her and make sure we do not miss any underlying coronary artery disease. In general, Ms. Witt is doing well. She came in mainly because of symptomatic anemia, was found to have hemoglobin of 5.4 with Hemoccult-positive and elevated glucose. She is currently transfused 2 packed red blood cells. Hemoglobin and hematocrit is 7.6. She has also been given iron infusion. She is feeling a lot better. She is pending esophagogastroduodenoscopy to rule out any pathology that could cause her gastrointestinal bleed. Her troponins have also gone up, which could all be demand mismatch, but we are consulting Cardiology to rule out any underlying coronary artery disease and non ST-elevation myocardial infarction. Of note, Ms. Witt denies any chest pain, and her electrocardiogram is unremarkable. cc: Francisco Small MD MTDD
--- NOTE | 2019-04-08 12:47 | CARDIOLOGY CONSULTATION ---
DATE: 04/08/2019 CHIEF COMPLAINT ON PRESENTATION: Nausea, vomiting, weakness. HISTORY OF PRESENT ILLNESS: Ms. Witt is a 78-year-old black female with a history of diabetes, chronic kidney disease, hypertension. She presents for complaints of weakness and elevated blood sugar levels. Incidentally, on finding to the ER she was noted to have a hemoglobin of 5.4 and hematocrit of 17.3. Notably back in 2017, her hematocrit was 24.5. She reports no chest pain or other pain complaints during the course of this evaluation. She reports 2 to 3 days of Aleve that she was taking it twice daily for back pain; that was recently. She notes black tarry stool occurring as well. She is not aware of any other nonsteroidal anti-inflammatory drugs that she was taking. She has no bleeding history that she is aware of. She was not having any blood in her stool. She has no history of diverticulitis or hemorrhoids that she is aware of. PAST MEDICAL HISTORY: Significant for: 1. Diabetes. 2. Chronic kidney disease. 3. Hypertension. 4. Reflux disease. 5. Hyperlipidemia. 6. History of stroke. 7. Chronic history of anemia. SOCIAL HISTORY: No tobacco, alcohol or illicit drugs. FAMILY HISTORY: Significant for hypertension, as well as diabetes. REVIEW OF SYSTEMS: A 10 system review of systems is negative, except for those things mentioned in HPI. PHYSICAL EXAMINATION: Vital Signs: The patient is afebrile. Her heart rate is 65, her blood pressure on presentation was 132/69. More recently, it was 199/55, but notably most of her systolics have been anywhere from the 120s to 150s. Generally: She is in no acute distress. HEENT: Oropharynx is moist. She has poor dentition. Her eye examination shows pale conjunctiva, white sclerae. Neck: Examination shows no obvious thyromegaly or thyroid tenderness. Cardiovascular: She sounds to be in a regular rate and rhythm. I do not hear any obvious murmurs. She has no S3. She has no lower extremity edema. Chest: Her chest exam sounds clear bilaterally. She has no increased work of breathing. Abdomen: Soft, nontender, nondistended. She has no obvious organomegaly. Skin: Exam is warm and dry throughout without any rashes. Neurological: Moving all extremities well. She has no lateralizing deficits. PERTINENT DATA: She had an echocardiogram with an ejection fraction of 60% and really no significant valvular abnormalities. Her original EKG on presentation on the at 1833 hours shows sinus rhythm with no obvious ischemic changes. She has what appears to be poor R-wave progression across the precordium. Subsequent EKG shows sinus rhythm, rate of 60 beats per minute, first-degree AV block. Her lab data shows a hemoglobin of 5.4 on presentation; subsequently it is up to 7.6. Her platelet count currently is 170, her white count currently is 11.2. Her sodium is 149, potassium 4.3, BUN 49, creatinine 2.2. Her cardiac enzymes originally when she came in were 0.034, subsequently have gone to 0.159. ASSESSMENT: Ms. Witt is a 78-year-old female, who presents with acute blood loss anemia of presumed gastrointestinal origin. In addition, she has had an asymptomatic Troponinemia. PLAN: Her echocardiogram shows a normal ejection fraction. Her EKGs have been relatively unremarkable. At this point, she may proceed with her GI evaluation. She [facility]. Please contact us if we can be of further assistance with this patient. cc: Alex Witt MD
--- NOTE | 2019-04-08 15:05 | GASTROENTEROLOGY CONSULTATION ---
DATE: 04/07/2019 REASON FOR CONSULT: Anemia. HISTORY OF PRESENT ILLNESS: Ms. Witt is a 78-year-old female who has a history of hypertension, diabetes, chronic kidney disease, hyperlipidemia, and CVA. The patient said that on Monday she started sweating profusely and on Monday night her sugars had reached about the 600 level. She had nausea, but she has denied any vomiting or abdominal pain. She has not complained of shortness of breath or fever. She said that 2 years back she had the same problem. She also mentioned that she has been having constipation. She goes once in 2 to 3 days. The patient is using a cane to walk. She takes regularly aspirin as well as she is on Plavix. The patient said that she has noticed some black tarry stools. On admission her hemoglobin was 5.4 and hematocrit was 17.3. Today it is 7.4 and 23.2. PAST MEDICAL HISTORY: Diabetes type 2, chronic kidney disease stage 3, hypertension, GERD, hyperlipidemia, history of CVA, and anemia. PAST SURGICAL HISTORY: Hysterectomy and right femoral-popliteal procedure. SOCIAL HISTORY: She is a . She has 1 child, 2 grandkids and 3 great grandkids. The patient has denied any alcohol, tobacco, or illicit drugs. FAMILY HISTORY: Her mom had diabetes and her sister had kidney problems. No significant GI malignancies. ALLERGIES: She is allergic to Demerol. HOME MEDICATIONS: Glimepiride 4 mg daily, aspirin 81 mg daily, Plavix 75 mg daily, pravastatin 80 mg daily, pioglitazone 15 mg daily, Reglan 10 mg every 6 hours, Imdur 30 mg daily, metformin 500 mg twice a day, tramadol 1 tablet twice a day as needed, chlorthalidone 25 mg daily, penicillin V potassium 500 mg 4 times a day, amlodipine 5 mg, she takes 2 tablets daily. REVIEW OF SYSTEMS: As per HPI. Otherwise, 12 point review of system is negative. PHYSICAL EXAMINATION: Vital Signs: Temperature 98.0, pulse 84, respirations 18, blood pressure 142/49, oxygen saturation 100% on room air. General: She is alert, oriented x3. Speech is slurred. Answers questions appropriately. In no acute distress. HEENT: Pale conjunctivae. No icterus. PERRL. Neck: Supple. Lungs: Clear to auscultation in the anterior franks. Cardiovascular: Regular rate and rhythm. Abdomen: Soft, nontender, mildly distended. Active bowel sounds heard in all 4 quadrants. Extremities: No clubbing. No cyanosis. No edema. Pedal pulses 2+ present bilaterally. Neurologic: She is alert and oriented x3. Nonfocal. Cranial nerves 2-12 grossly intact. LAB: WBC is 13.67, RBC is 2.88, hemoglobin 7.4, hematocrit 23.2, platelet count 156,000. Sodium 142, potassium 4.4, chloride 107, carbon dioxide 22, anion gap 13, BUN 79, creatinine 2.2, calcium 8.8, Urinalysis on showed a trace of protein and glucose greater than 1,000. Toxicology, acetone level was negative. Blood cultures no growth, occult blood was positive, Urine culture mixed tariq, throat culture no strep. Chest x-ray showed nonspecific findings. IMPRESSIONS: 1. Anemia. 2. Gastrointestinal bleed. 3. Chronic kidney disease. 4. Uncontrolled diabetes type 2. 5. Hypertension. 6. Cerebrovascular accident. PLAN: We plan to do an endoscopy, but we will be waiting for the patient's sugar levels to be under control. Cardiology is consulted, patient is on plavix, we will wait for cardiology to let us know if we can do an EGD. The patient is currently on Protonix IV 40 mg twice a day. She is on antibiotic, Zosyn. We will continue to monitor the patient CBC, BMP and follow the plan of care per PCP and cardiology. This plan was discussed with Dr. Edge. Thank you for your consult. Please call us for any further questions or concerns. Dictated by PATRIA Le for Mahesh Edge MD cc: Mahesh Edge MD [facility]
[2019-04-08] MEDS: SODIUM CHLORIDE 0.9% INJ PRN (20:59)
[2019-04-08] MEDS: PROTONIX IV SCH (20:59)
[2019-04-09] MEDS: ZOSYN 2.25 GM in NS 50 ML IV SCH ×4 (04:53→23:04)
[2019-04-09] MEDS: HUMULIN R SUBQ SCH ×4 (06:22→20:37)
[2019-04-09] MEDS ORDERED: DIPRIVAN 1% ONE (07:00)
[2019-04-09] MEDS ORDERED: ROBINUL ONE (07:00)
[2019-04-09] MEDS ORDERED: XYLOCAINE-MPF 2% ONE (07:00)
[2019-04-09 07:21] LABS: HEMATOCRIT 22.5 % (37.0-47.0); HEMOGLOBIN 7.2 g/dL (12.0-16.0); MCH 26.9 PG (27-31); MPV 9.8 FL (7.4-10.4); RBC 2.68 XMIL (4.2-5.4); RDW 16.2 % (11.5-14.5); WBC 8.74 X1000 (4.8-10.8)
--- NOTE | 2019-04-09 07:32 | GASTROENTEROLOGY PROGRESS NOTE ---
DATE: 04/08/2019 SUBJECTIVE: Ms. Witt is a 78-year-old, -[place] female who was resting in bed. She denied any complaints of nausea, vomiting, chest pain, or any coffee-grounds emesis. She also denied having a bowel movement today. OBJECTIVE: Vital Signs: Temperature 99.0 degrees, pulse 65, respirations 14, blood pressure 199/55, oxygen saturation 100% on room. The patient's weight is 195, BMI is 33.5 kg/m2. General: She is alert, oriented x3, and in no acute distress. Speech is a little bit slurred. HEENT: Pale conjunctivae. No icterus. PERRL. Neck: Supple. Lungs: Clear to auscultation in the anterior franks. Cardiovascular: Regular rate and rhythm. Abdomen: Soft, nontender, mildly distended. Active bowel sounds heard in all 4 quadrants. Extremities: No clubbing, no cyanosis, no edema. Pedal pulses 2+ present bilaterally. Neurologic: She is alert and oriented x3. Laboratory Data: WBCs 11.18, RBCs 2.81, hemoglobin 7.6, hematocrit 22.3, platelet count is 170,000. PT is 15.4, INR is 1.20. Sodium 149, potassium 4.3, chloride 111, carbon dioxide 24, anion gap 14, BUN 49, creatinine 2.2, glucose 108, calcium 9.1, phosphorus 3.7. IMPRESSION: 1. Anemia. 2. Gastrointestinal bleed. 3. Chronic kidney disease. 4. Uncontrolled diabetes type 2. 5. Hypertension. 6. Cerebrovascular accident. PLAN: The patient has been seen by the retail sales merchandiser and the retail sales merchandiser had mentioned that her ejection fraction was normal and it is okay for the GI to proceed with the treatment plan.. We will plan to do an EGD tomorrow. The patient is currently on a diabetic diet. She will be n.p.o. after midnight. The patient's hemoglobin today was 7.6 and hematocrit was 23.3. They have slightly trended upwards. The patient is on GI prophylaxis, Protonix 40 mg IV daily. She is receiving antibiotic, Zosyn. We will continue to monitor her CBCs and BMPs, and further plan of care will be based on the EGD findings. This plan was discussed with Dr. Edge. Please call us for any further questions or concerns. Dictated by PATRIA Le for Mahesh Edge MD cc: Mahesh Edge MD [facility] DIVISIONJuwan
[2019-04-09 07:39] LABS: ALBUMIN 3.1 g/dL (3.5-5.0); CALCIUM 8.4 mg/dL (8.8-10.2); PHOSPHORUS 3.4 mg/dL (2.7-4.5); POTASSIUM 3.4 mmol/L (3.5-5.1)
[2019-04-09] MEDS ORDERED: ZOFRAN ONE (08:57)
--- NOTE | 2019-04-09 09:45 | ENDOSCOPY OPERATIVE NOTE ---
[facility] ENDOSCOPY OPERATIVE NOTE , PATIENT: Nidia Witt ADMISSION DATE: 04/09/2019 MR#: [id number] : 1940 EGD PROCEDURE REPORT PROCEDURE DATE: 04/09/2019 SURGEON: Irineo Bunch MD STATUS: inpatient ARCHIVAL RECORDS CLERK: PREOPERATIVE DIAGNOSIS: The patient is a 78 yr old female here for an EGD due to anemia and melena. She is on aspirin and plavix and recently been taking Alleve. PROCEDURE PERFORMED: EGD w/ biopsy MEDICATIONS: Per Anesthesia TOPICAL ANESTHETIC: none CONSENT: The patient understands the risks and benefits of the procedure and understands that these r isks include, but are not limited to: sedation, allergic reaction, infection, perforation and/or bleeding. Alternative means of evaluation and treatment include, among others: physical exam, x-rays, and/or surgical intervention. The patient elects to proceed with this endoscopic procedure. HISORY AND PHYSICAL: 04/09/2019 DESCRIPTION OF PROCEDURE: During intra-op preparation period all mechanical and medical equipment was checked for proper function. Hand hygiene and appropriate measures for infection prevention was taken. After the risks, benefits and alternatives of the procedure were thoroughly explained, Informed consent was verified, confirmed and timeout was successfully executed by the treatment team. The patient was anesthetized with topical anesthesia and the [id number] ([id number]) endoscope was introduced through the mouth and advanced to the second portion of the duoden um. Retroflexion was performed in the stomach and revealed a hiatal hernia. The gastroscope was then slowly withdrawn and removed. ESOPHAGUS: A 2 cm hiatal hernia was noted. The z-line was noted at 40cm from the incisors. The z-l ine appeared normal. STOMACH: Two non-bleeding, shallow and clean-based ulcers ranging between 3-7mm in size were found in the gastric body. Random biopsies were taken from the antrum and gastric body to rule out H pylori. DUODENUM: The duodenum was normal. SPECIMENS REMOVED: Yes ADVERSE EVENTS: There were no complications. POSTOPERATIVE DIAGNOSIS: ESOPHAGUS: A 2 cm hiatal hernia was noted. The z-line was noted at 40cm from the incisors. The z-l ine appeared normal. STOMACH: Two non-bleeding, shallow and clean-based ulcers ranging between 3-7mm in size were found in the gastric body. Random biopsies were taken from the antrum and gastric body to rule out H pylori. DUODENUM: The duodenum was normal. RECOMMENDATIONS: 1. Await biopsy results 2. Advance diet as tolerated 3. Recommend pantoprazole 40mg PO BID for 12 weeks 4. Avoid NSAIDs 5. Repeat H/H in 3 months at outpatient 6. Resume home blood thinners upon discharge 7. Follow-up with GI upon discharge to arrange follow-up EGD REPEAT EXAM: Return in 3 months for EGD. Irineo Bunch MD eSigned: Irineo Bunch MD 04/09/2019 9:45 AM cc: PATIENT NAME: Nidia Witt MR#: [id number]
[2019-04-09] MEDS: PRAVACHOL PO SCH (10:04)
[2019-04-09] MEDS: NORVASC PO SCH (10:04)
[2019-04-09] MEDS: COREG PO SCH ×2 (10:04→20:36)
[2019-04-09] MEDS: LANTUS INSULIN SUBQ SCH ×2 (10:04→20:38)
[2019-04-09] MEDS ORDERED: ULTRACET 37.5MG/325MG PO PRN (16:02)
--- NOTE | 2019-04-09 19:43 | PROGRESS NOTE ---
DATE: 04/09/2019 SUBJECTIVE: The patient has no major complaints. She is seen after EGD, but she is awake. She has recovered from anesthesia. I do not think she has had any major bleeding. OBJECTIVE: Vital Signs: Blood pressure is 173/58, heart rate of 62, respiratory rate of 20, temperature 98.1 degrees, 97% on room air. Cardiovascular: Regular rate and rhythm. Pulmonary: Bilateral breath sounds. Clear to auscultation. GI: Was soft, nontender, nondistended. Bowel sounds were positive. Extremity exam: No clubbing or cyanosis. Lymphatic exam: No peripheral edema. Neurological: Nonfocal. LABORATORY DATA: White count is 8, hemoglobin and hematocrit 7 and 22, platelets of 168,000. BUN and creatinine are 35 and 2, which is not a big drop. She did have a mild bump in her troponins. PROBLEM LIST: 1. Hyperosmolar hyperglycemic nonketotic state. The patient's glucose levels have normalized. 2. Dehydration. We will continue fluid resuscitation and follow. 3. Microcytic anemia is overall improved, status post transfusion. 4. Type 2 diabetes is stable currently. 5. Elevated troponins felt to be related to demand ischemia from the anemia, but not acute cardiac disease. Her hemoglobin and hematocrit is slowly drifting downwards. Her EGD today showed clean based ulcers with biopsies completed and likely cause of her issues here. DISPOSITION: We will plan to monitor her for another 24 hours. If her hemoglobin and hematocrit is stable, I do not think we will need to pursue, although she has had a slow decline, but I think we can anticipate discharge in the next 1 to 2 days. cc: Lavon Tinajero MD
[2019-04-09] MEDS: REGLAN PO SCH (20:35)
[2019-04-09] MEDS: PROTONIX PO SCH (20:36)
[2019-04-10] MEDS: REGLAN PO SCH ×4 (02:25→21:05)
[2019-04-10] MEDS: ZOSYN 2.25 GM in NS 50 ML IV SCH ×2 (04:45→12:00)
[2019-04-10] MEDS: HUMULIN R SUBQ SCH ×4 (06:33→21:06)
[2019-04-10] MEDS: PROTONIX PO SCH ×2 (06:34→21:05)
[2019-04-10 07:21] LABS: BASO# 0.02 X1000 (0.0-0.2); BASO% 0.2 % (0.0-0.8); EOS# 0.15 X1000 (0.0-0.7); EOS% 1.8 % (0.0-10.0); HEMOGLOBIN 7.2 g/dL (12.0-16.0); IMM GRAN# 0.03 X1000 (0.0-0.04); IMM GRAN% 0.4 % (0.0-0.5); LYMPH# 1.49 X1000 (1.2-3.4); LYMPH% 17.6 % (20.5-51.1); MCH 26.3 PG (27-31); MCHC 31.3 g/dL (33-37); MCV 83.9 FL (81-99); MONO# 0.77 X1000 (0.11-0.59); MONO% 9.1 % (1.7-9.3); MPV 9.6 FL (7.4-10.4); NEUT# 5.99 X1000 (1.4-6.5); NEUT% 70.9 % (42.2-75.2); PLT 187 X1000 (130-400); RBC 2.74 XMIL (4.2-5.4); WBC 8.45 X1000 (4.8-10.8)
[2019-04-10 07:42] LABS: CALCIUM 8.3 mg/dL (8.8-10.2); MAGNESIUM 1.8 mg/dL (1.5-2.7); POTASSIUM 3.8 mmol/L (3.5-5.1)
[2019-04-10] MEDS ORDERED: ACTOS PO SCH (09:00)
[2019-04-10] MEDS ORDERED: AMARYL PO SCH (09:00)
[2019-04-10] MEDS: COREG PO SCH ×2 (09:48→21:05)
[2019-04-10] MEDS: NORVASC PO SCH (09:49)
[2019-04-10] MEDS: PRAVACHOL PO SCH (09:49)
[2019-04-10] MEDS: HYGROTON PO SCH (09:49)
[2019-04-10] MEDS: IMDUR PO SCH (09:49)
[2019-04-10] MEDS: LANTUS INSULIN SUBQ SCH ×2 (09:57→21:06)
[2019-04-10] MEDS ORDERED: NS 500 ML IV ONE (16:25)
--- NOTE | 2019-04-10 16:58 | GASTROENTEROLOGY PROGRESS NOTE ---
DATE: 04/10/2019 SUBJECTIVE: Ms. Witt is a 78 year old female resting in bed. Denied any nausea or vomiting. She also denied any bowel movements today. OBJECTIVE: Vital Signs: Temperature 97.6 degrees, pulse 60, respirations 20, blood pressure 138/46, and oxygen saturation 100% on room air. The patient's weight is 195 pounds. BMI is 33.5 kg/m2. General: She is alert and oriented x3 in no acute distress. Speech is slightly slurred. HEENT: Pale conjunctivae. No icterus. PERRL. The neck is supple. Lungs: Clear to auscultation in the anterior franks. Cardiovascular: Regular rate and rhythm. Abdomen: Soft, nontender. Mildly distended. Active bowel sounds heard in all 4 quadrants. Extremities: No clubbing, no cyanosis, no edema. Pedal pulses 2+ present bilaterally. Neurologic: She is alert and oriented x3. LABORATORY: WBCs 8.45, RBC 2.74, hemoglobin 7.2, hematocrit 23.0, and platelet count 187,000. Sodium 147, potassium 3.8, chloride 109, carbon dioxide 25, anion gap is 13, BUN 32, creatinine 2.10, glucose 79, calcium 8.3, and magnesium 1.8. IMPRESSION AND PLAN: Anemia GI bleed CKD Uncontrolled diabetes type II Hypertension CVA PLAN: Ms. Witt is a 78 year old female who came in with anemia, GI bleed and uncontrolled diabetes. GI is following her for her anemia and GI bleed. Dr. Bunch did an endoscopy yesterday, findings were 2 cm hiatal hernia in the esophagus. Stomach had 2 nonbleeding shallow and clean based ulcers ranging from 3 to 7 mm in size in the gastric body. Biopsies were taken from the antrum and gastric body to rule out H-pylori. The duodenum was normal. Awaiting the results of the biopsies. The patient's hemoglobin is 7.2 and hematocrit is 23.0. So far, the patient has received 2 units of packed red blood cells and also received iron infusion per PCP. The patient is currently on a GI prophylaxis, Protonix 40 mg twice a day. Her diabetes is managed by Lantus and Humalog on a sliding scale. The patient's fingerstick blood sugar this morning was 73. Her diabetes is under control. We will continue to monitor her CBC and BMP. If her hemoglobin drops below 7, we will plan to transfuse packed red blood cells per protocol. We will continue to follow the plan of care per PCP. This plan was discussed with Dr. Bunch. Please call us for any further questions or concerns. Dictated by PATRIA Le for Irineo Bunch MD Physician Attestation I have seen and examined the patient. I have discussed and reviewed the the note by Leanna ESPAÑA and agree with findings and plan as documented. In brief, Ms. Nidia Witt is a 78 year old woman who presented with UGIB with melena from PUD in the setting o DAPT and NSAID use. Hgb is stable. She reports constipation. No abdominal pain, N/V. Recommend continue PPI PO BID for 3 months, avoid NSAIDs, repeat EGD in 3 months. Ok to be discharged on iron replacement therapy with follow-up with GI in 2-4 weeks. Ok to resume aspirin and plavix on discharge. Gastric biopsies pending. Will sign off. Please call with questions. MTDD
--- NOTE | 2019-04-10 22:25 | PROGRESS NOTE ---
DATE: 04/10/2019 SUBJECTIVE: The patient has no major complaints. OBJECTIVE: Blood pressure 149/52, heart rate 71, respiratory rate 20, temperature 98.5 degrees, 94% on room air.Cardiovascular: Regular rate and rhythm. Pulmonary: Bilateral breath sounds, clear to auscultation. GI: Soft, nontender, nondistended. Bowel sounds are positive. LABORATORY DATA: White count is 8, hemoglobin and hematocrit are 7 and 23, which have been stable for 3 days now. glucose: 187. Sodium 147, creatinine of 2. ASSESSMENT AND PLAN: 1. Symptomatic anemia. I am going to give her one more unit, because I am fairly sure she probably does have some underlying coronary artery disease. Her last Lexiscan here was in 2013 and she did have some myocardial ischemia associated, so I am trying to get her above 8 and 25. In any case, she will probably need to be discharged on iron. I do not think we are planning to do any other testing at this point. 2. Hyperosmolar diabetes. Blood sugars have been stable. 3. Elevated troponins due to demand ischemia, related to her profound anemia. She seems to be doing okay. She will follow up with Cardiology. A little unclear why she is on antibiotics at this point. I am going to stop those. 4. Disposition: I think if her hemoglobin and hematocrit is stable, will discharge tomorrow. cc: Lavon Tinajero MD [facility]
[2019-04-11] MEDS: REGLAN PO SCH ×2 (03:12→09:28)
[2019-04-11] MEDS: PROTONIX PO SCH (06:33)
[2019-04-11] MEDS: HUMULIN R SUBQ SCH ×2 (06:33→12:01)
[2019-04-11 07:32] VITALS: BP 170/52
[2019-04-11 08:21] LABS: HEMATOCRIT 28.6 % (37.0-47.0); HEMOGLOBIN 9.4 g/dL (12.0-16.0); MCH 27.6 PG (27-31); MCHC 32.9 g/dL (33-37); MCV 84.1 FL (81-99); MPV 10.3 FL (7.4-10.4); RBC 3.4 XMIL (4.2-5.4); WBC 10.22 X1000 (4.8-10.8)
[2019-04-11] MEDS: PRAVACHOL PO SCH (09:27)
[2019-04-11] MEDS: IMDUR PO SCH (09:27)
[2019-04-11] MEDS: HYGROTON PO SCH (09:27)
[2019-04-11] MEDS: NORVASC PO SCH (09:28)
[2019-04-11] MEDS: COREG PO SCH (09:28)
[2019-04-11] MEDS: LANTUS INSULIN SUBQ SCH (09:28)
--- NOTE | 2019-04-12 13:09 | DISCHARGE SUMMARY ---
ADMISSION DATE: 04/06/2019 DISCHARGE DATE: 04/11/2019 DISCHARGE DIAGNOSES: 1. Symptomatic anemia related to peptic ulcer disease. 2. Hyperosmolar, nonketotic syndrome associated with diabetes. 3. Elevated troponins due to demand ischemia but not an acute coronary event. CONSULTATIONS: 1. Dr. Edge, GI. 2. Dr. Alex Witt, Cardiology. PROCEDURES: Endoscopy on the per Dr. Bunch which showed 2 nonbleeding shallow clean based ulcers in the gastric body. HISTORY: Briefly, the patient was admitted because of elevated blood sugar over 600. She had been on antibiotics for a dental infection. She was not found to be in DKA, but she was found to be in acute renal failure with a BUN and creatinine of 103 and 2.4, very hemoconcentrated. She was placed on fluids. Her hematocrit was 17 with an initial hemoglobin I think around 5. She was transfused 2 units of packed red blood cells. She was taken off her anti-platelet therapy. GI was consulted. Echo was obtained which showed an EF of 60%. No wall motion abnormality. Grade 1 diastolic dysfunction. GI was consulted, and they did supportive care initially, and they planned for endoscopy. Subsequently, Dr. Witt evaluated the patient and felt that the EKGs were unremarkable. Echo was okay. And that she could proceed with GI evaluation and [facility]. Again, the EGD showed 2 shallow ulcers. Her hemoglobin and hematocrit after transfusion it came up, and stayed around the level of 7 and 23. Because of her concurrent cardiac issues, I did go ahead and give her 1 more unit of blood. Her creatinine came down to around 2 which was felt close to baseline. She is tolerating p.o. without difficulty. The patient was felt stable for discharge. She will need to follow up with Dr. Bunch, and maintained on Protonix. Blood sugars have been stable. We can resume her aspirin and Plavix I think in about a week just to make sure that she stabilizes. She is on a very low-dose regimen of Lantus which I think we are probably going to have to continue that because it has been controlling her sugar. She has previously been on pioglitazone, which I think we will stop that. It will be very urgent that she follows up with Dr. Wayne Delatorre for blood sugar management. I think we are just going to do 10 units a day and that should be fine. She is getting 5 units b.i.d., but I think 10 units daily should be fine and she can maintain herself on her glimepiride. We will need to follow bold phase. Followup with blood sugars, and she will need a follow up CBC in a week. We will continue and then she can resume her aspirin and Plavix accordingly. Follow up with Dr. Bunch in 1 to [address] Delatorre [facility] scheduled. Return for any worsening bleeding. TIME SPENT: 32 minute discharge. cc: Lavon Tinajero MD
== END 2019-04-11 13:03 | disposition home or self-care (01) | DRG 637 ==
LOC: ED 17:43 → SUATTDRO 21:42 → 3N 21:42
PROVIDERS: ATTEND Internal Medicine